=== PATIENT | female | born 1960 | race Caucasian/White ===

== ENCOUNTER 2018-11-09 01:59 | Emergency (ER) | payer OTHER ==
--- OUTSIDE RECORDS SUMMARY | 2018-11-09 02:02 | XMS REPORT ---
:1960 [facility] Address [address] [place] [address] Dr. Bland [address] [place] [id number] Care Team Providers Name Role Phone Unavailable Unavailable Unavailable Problems This patient has no known problems. Allergies, Adverse Reactions, Alerts This patient has no known allergies or adverse reactions. Medications This patient has no known medications.
--- NOTE | 2018-11-09 02:42 | ER ---
Nurse's Notes [facility] Name: Dede Mcmanus Age: 58 yrs Sex: Female : 1960 Arrival Date: 11/09/2018 Time: 02:01 Bed 5 Private MD: Andreia العلي F Diagnosis: Contusion of left foot Presentation: 11/09 02:11 Presenting complaint: Patient states: Reports she has been having pain on the top of ea her left foot, pt reports it woke her up from her sleep tonight. Pt reports she had a fall two weeks ago. Transition of care: patient was not received from another setting of care. Onset of symptoms was November 09, 2018. Risk Assessment: Do you want to hurt yourself or someone else? Patient reports no desire to harm self or others. Initial Sepsis Screen: Does the patient meet any 2 criteria? No. Patient's initial sepsis screen is negative. Does the patient have a suspected source of infection? No. Patient's initial sepsis screen is negative. Care prior to arrival: None. 02:11 Method Of Arrival: Wheelchair ea 02:11 Acuity: SHARIFA 3 ea Historical: - Allergies: 02:22 No Known Allergies; ea - Home Meds: 02:22 Abilify Oral [Active]; Lexapro Oral [Active]; Concerta Oral [Active]; Lantus Sub-Q ea [Active]; - PMHx: 02:22 Migraines; Diabetes - IDDM; Depression; ADD/ADHD; ea - PSHx: 02:22 Knee surgery; Appendectomy; Cholecystectomy; ea - Immunization history:: Adult Immunizations up to date. - Social history:: Smoking status: Patient/guardian denies using tobacco. - Ebola Screening: : No symptoms or risks identified at this time. Screenin:20 Abuse screen: Denies threats or abuse. Nutritional screening: No deficits noted. ea Tuberculosis screening: No symptoms or risk factors identified. Fall Risk None identified. Assessment: 02:16 General: Appears in no apparent distress. uncomfortable, Behavior is calm, cooperative, jd3 appropriate for age. Pain: Complains of pain in dorsum of left foot Quality of pain is described as aching, Aggravated by weight bearing. Neuro: Level of Consciousness is awake, alert, obeys commands, Oriented to person, place, time, situation, Appropriate for age. Cardiovascular: Capillary refill < 3 seconds Patient's skin is warm and dry. Respiratory: Airway is patent Respiratory effort is even, unlabored, Respiratory pattern is regular, symmetrical. GI: No signs and/or symptoms were reported involving the gastrointestinal system. : No signs and/or symptoms were reported regarding the genitourinary system. EENT: No signs and/or symptoms were reported regarding the EENT system. Derm: Skin is intact, Skin is dry, Skin is normal, Skin temperature is warm. Musculoskeletal: Circulation, motion, and sensation intact. Range of motion: intact in all extremities. 03:04 Reassessment: Patient appears in no apparent distress at this time. Patient and/or jd3 family updated on plan of care and expected duration. Pain level reassessed. Patient is alert, oriented x 3, equal unlabored respirations, skin warm/dry/pink. Vital Signs: 02:19 BP 129 / 74; Pulse 74; Resp 18; Temp 97.7; Pulse Ox 98% on R/A; Weight 94.35 kg; Height ea 5 ft. 7 in. (170.18 cm); 02:19 Body Mass Index 32.58 (94.35 kg, 170.18 cm) ea ED Course: 02:01 Patient arrived in ED. am2 02:01 Andreia العلي MD is Private Physician. am2 02:11 Timi Koroma, FAITH is Primary Nurse. jd3 02:16 [facility]. jr8 02:16 Michel Cordon MD is Attending Physician. jr8 02:18 Triage completed. ea 02:18 Patient has correct armband on for positive identification. Bed in low position. Call ea light in reach. 02:19 Arm band placed on right wrist. Patient placed in an exam room, on a stretcher, on ea pulse oximetry. 02:28 X-ray completed. Portable x-ray completed in exam room. Patient tolerated procedure kw well. 02:29 XRAY Foot LEFT 3 View In Process Unspecified. EDMS 02:41 Benny Waters MD is Referral Physician. jr8 02:55 ortho shoe placed on right foot, pt tolerated well. ea 02:59 No provider procedures requiring assistance completed. Patient did not have IV access ea during this emergency room visit. Administered Medications: 02:54 Drug: Achille (7.5 mg-325 mg) 1 tabs Route: PO; ea 03:04 Follow up: Response: Medication administered at discharge. jd3 Outcome: 02:42 Discharge ordered by . jr8 03:04 Discharged to home via wheelchair, with family. jd3 03:04 Condition: stable 03:04 Discharge instructions given to patient, family, Instructed on discharge instructions, follow up and referral plans. medication usage, Demonstrated understanding of instructions, follow-up care, medications, Prescriptions given X 1. 03:05 Patient left the ED. jd3 Signatures: Dispatcher [employer] EDMS Brandee Castillo Josh, PA PA jrMahi Doty Elena, RN Timi Villagran ea, RN RN jd3
--- NOTE | 2018-11-09 02:42 | EDPHYS ---
Physician Documentation [facility] Name: Dede Mcmanus Age: 58 yrs Sex: Female : 1960 Arrival Date: 11/09/2018 Time: 02:01 Bed 5 Private MD: Andreia العلي F ED Physician Michel Cordon HPI: 11/09 02:17 This 58 yrs old Female presents to ER via Unassigned with complaints of Foot jr8 Pain. 02:17 The patient presents with pain. The complaints affect the dorsum of left foot. Context: jr8 The problem was sustained at home, resulted from the patient tripping, the patient can fully bear weight, the patient is able to ambulate. Onset: The symptoms/episode began/occurred acutely, 2 week(s) ago. Modifying factors: The symptoms are alleviated by remaining still, the symptoms are aggravated by movement, weight bearing. Associated signs and symptoms: The patient has no apparent associated signs or symptoms. Severity of symptoms: At their worst the symptoms were mild, in the emergency department the symptoms are unchanged. The patient has not experienced similar symptoms in the past. The patient has not recently seen a physician. Stated that she came tonight because she had been woke up from sleeping by a sharp pain to foot. No prior imaging completed at time of incidence . Historical: - Allergies: 02:22 No Known Allergies; ea - Home Meds: 02:22 Abilify Oral [Active]; Lexapro Oral [Active]; Concerta Oral [Active]; Lantus Sub-Q ea [Active]; - PMHx: 02:22 Migraines; Diabetes - IDDM; Depression; ADD/ADHD; ea - PSHx: 02:22 Knee surgery; Appendectomy; Cholecystectomy; ea - Immunization history:: Adult Immunizations up to date. - Social history:: Smoking status: Patient/guardian denies using tobacco. - Ebola Screening: : No symptoms or risks identified at this time. ROS: 02:17 Eyes: Negative for injury, pain, redness, and discharge, ENT: Negative for injury, jr8 pain, and discharge, Neck: Negative for injury, pain, and swelling, Cardiovascular: Negative for chest pain, palpitations, and edema, Respiratory: Negative for shortness of breath, cough, wheezing, and pleuritic chest pain, Abdomen/GI: Negative for abdominal pain, nausea, vomiting, diarrhea, and constipation, Back: Negative for injury and pain, Skin: Negative for injury, rash, and discoloration, Neuro: Negative for headache, weakness, numbness, tingling, and seizure. 02:17 MS/extremity: Positive for pain, tenderness, of the dorsum of left foot. Exam: 02:17 Eyes: Pupils equal round and reactive to light, extra-ocular motions intact. Lids and jr8 lashes normal. Conjunctiva and sclera are non-icteric and not injected. Cornea within normal limits. Periorbital areas with no swelling, redness, or edema. ENT: Nares patent. No nasal discharge, no septal abnormalities noted. Tympanic membranes are normal and external auditory canals are clear. Oropharynx with no redness, swelling, or masses, exudates, or evidence of obstruction, uvula midline. Mucous membranes moist. Neck: Trachea midline, no thyromegaly or masses palpated, and no cervical lymphadenopathy. Supple, full range of motion without nuchal rigidity, or vertebral point tenderness. No Meningismus. Cardiovascular: Regular rate and rhythm with a normal S1 and S2. No gallops, murmurs, or rubs. Normal PMI, no JVD. No pulse deficits. Respiratory: Lungs have equal breath sounds bilaterally, clear to auscultation and percussion. No rales, rhonchi or wheezes noted. No increased work of breathing, no retractions or nasal flaring. Abdomen/GI: Soft, non-tender, with normal bowel sounds. No distension or tympany. No guarding or rebound. No evidence of tenderness throughout. Back: No spinal tenderness. No costovertebral tenderness. Full range of motion. Skin: Warm, dry with normal turgor. Normal color with no rashes, no lesions, and no evidence of cellulitis. Neuro: Awake and alert, GCS 15, oriented to person, place, time, and situation. Cranial nerves II-XII grossly intact. Motor strength 5/5 in all extremities. Sensory grossly intact. Cerebellar exam normal. Normal gait. 02:17 Musculoskeletal/extremity: Extremities: grossly normal except: noted in the dorsum of left foot: pain, tenderness, ROM: intact in all extremities, full active range of motion, full passive range of motion, limited active range of motion due to pain, limited passive range of motion due to pain, Circulation is intact in all extremities. Pulses: noted to be 2+ in the right radial artery, right posterior tibial artery, right dorsalis pedis artery, left radial artery, left posterior tibial artery and left dorsalis pedis artery, Sensation intact. Vital Signs: 02:19 BP 129 / 74; Pulse 74; Resp 18; Temp 97.7; Pulse Ox 98% on R/A; Weight 94.35 kg; Height ea 5 ft. 7 in. (170.18 cm); 02:19 Body Mass Index 32.58 (94.35 kg, 170.18 cm) ea Procedures: 02:41 Splinting: Splint applied to left foot using Ortho 3D boot, applied by nurse. Examined jr8 by me, post splint application: neurovascular intact, 2+ distal pulses palpable, brisk capillary refill noted, Patient tolerated well. MDM: 02:16 Patient medically screened. jr8 02:35 Data reviewed: vital signs, nurses notes, radiologic studies, plain films, and as a jr8 result, I will discharge patient. Data interpreted: Pulse oximetry: on room air is 98 %. Interpretation: normal. Counseling: I had a detailed discussion with the patient and/or guardian regarding: the historical points, exam findings, and any diagnostic results supporting the discharge/admit diagnosis, radiology results, the need for outpatient follow up, a orthopedic surgeon, to return to the emergency department if symptoms worsen or persist or if there are any questions or concerns that arise at home. 11/09 02:17 Order name: XRAY Foot LEFT 3 View jr8 11/09 02:55 Order name: Ortho shoe; Complete Time: 02:55 ea Administered Medications: 02:54 Drug: Eldridge (7.5 mg-325 mg) 1 tabs Route: PO; ea 03:04 Follow up: Response: Medication administered at discharge. jd3 Disposition: 04:25 Co-signature as Attending Physician, Michel Cordon MD I agree with the assessment and wa plan of care. Disposition: 11/09/18 02:42 Discharged to Home. Impression: Contusion of left foot. - Condition is Stable. - Discharge Instructions: Foot Contusion. - Prescriptions for Tylenol- Codeine #3 300-30 mg Oral Tablet - take 2 tablets by ORAL route every 6 hours As needed; 12 tablet. - Medication Reconciliation Form, Thank You Letter, Antibiotic Education, Prescription Opioid Use form. - Follow up: Benny Waters MD; When: 5 - 6 days; Reason: Recheck today's complaints, Continuance of care, Re-evaluation by your physician. - Problem is new. - Symptoms have improved. Signatures: Dispatcher [employer] EDMS Richard Ramey PA PA jr8 Yesi Villela RN RN ea Michel Cordon MD MD wa Davies, Jonathon, RN RN jd3 Corrections: (The following items were deleted from the chart) 03:05 02:42 11/09/2018 02:42 Discharged to Home. Impression: Contusion of left foot. jd3 Condition is Stable. Forms are Medication Reconciliation Form, Thank You Letter, Antibiotic Education, Prescription Opioid Use. Follow up: Dr. Benny Waters; When: 5 - 6 days; Reason: Recheck today's complaints, Continuance of care, Re-evaluation by your physician. Problem is new. Symptoms have improved. jr8
[2018-11-09] MEDS ORDERED: HYDROCODONE/APAP 7.5/325 MG TAB ONE (03:00)
--- NOTE | 2018-11-09 08:34 | RAD REPORT ---
EXAM DESCRIPTION: RAD - Foot Left 3 View - 11/09/2018 2:33 am CLINICAL HISTORY: PAIN Pain and swelling COMPARISON: No comparisons FINDINGS: No fracture or dislocation identified. Large plantar calcaneal spur.
[2018-11-09 15:43] VITALS: BP 129/74; TEMP 97.7; O2SAT 98
== END 2018-11-09 03:05 | disposition home or self-care (01) ==
LOC: ER 01:59
DX: S90.32XA Contusion of left foot, initial encounter (principal); W18.40XA Slipping, tripping and stumbling without falling, unspecified, initial encounter; Y92.009 Unspecified place in unspecified non-institutional (private) residence as the place of occurrence of the external cause; E11.9 Type 2 diabetes mellitus without complications; F32.9 Major depressive disorder, single episode, unspecified; F90.9 Attention-deficit hyperactivity disorder, unspecified type; Z79.4 Long term (current) use of insulin
CPT/HCPCS: 99284

== ENCOUNTER 2020-03-01 20:44 | Emergency (ER) | payer OTHER ==
--- OUTSIDE RECORDS SUMMARY | 2020-03-01 20:46 | XMS REPORT | Continuity of Care Document ---
:1960 Author Organization [facility] t Address [address] [place] [address] Dr. Bland [address] [place] [id number] Care Team Providers Name Role Phone Unavailable Unavailable Unavailable Problems This patient has no known problems. Allergies, Adverse Reactions, Alerts This patient has no known allergies or adverse reactions. Medications This patient has no known medications. Procedures This patient has no known procedures. Results This patient has no known results.
--- NOTE | 2020-03-01 23:26 | EDPHYS ---
Physician Documentation [facility] Name: Dede Mcmanus Age: 59 yrs Sex: Female : 1960 Arrival Date: 03/01/2020 Time: 20:46 Bed 19 Private MD: ED Physician Yury Peterson HPI: 03/02 22:37 This 59 yrs old Female presents to ER via Ambulatory with complaints of tw4 Sneezing, Cough, Headache, Decreased Appetite. 22:37 The patient or guardian reports congestion. The patient or guardian reports cough. tw4 Onset: The symptoms/episode began/occurred today. Severity of symptoms: At their worst the symptoms were moderate. Modifying factors: The symptoms are alleviated by nothing, the symptoms are aggravated by nothing. Associated signs and symptoms: The patient has no apparent associated signs or symptoms. The patient has not experienced similar symptoms in the past. Historical: - Allergies: 03/01 21:09 No Known Allergies; lp1 - Home Meds: 21:09 Abilify Oral [Active]; Concerta Oral [Active]; Lantus Sub-Q [Active]; Lexapro Oral lp1 [Active]; Metformin Oral [Active]; - PMHx: 21:09 ADD/ADHD; Depression; Diabetes - IDDM; Migraines; lp1 - PSHx: 21:09 Cholecystectomy; Appendectomy; Knee surgery; lp1 - Immunization history:: Adult Immunizations up to date. - Social history:: Smoking status: Patient denies any tobacco usage or history of. ROS: 03/02 22:37 Constitutional: Negative for fever, chills, and weight loss, Eyes: Negative for injury, tw4 pain, redness, and discharge, Cardiovascular: Negative for chest pain, palpitations, and edema, Abdomen/GI: Negative for abdominal pain, nausea, vomiting, diarrhea, and constipation, Back: Negative for injury and pain, MS/Extremity: Negative for injury and deformity, Skin: Negative for injury, rash, and discoloration, Neuro: Negative for headache, weakness, numbness, tingling, and seizure. Respiratory: Positive for cough, Negative for dyspnea on exertion, hemoptysis, orthopnea, pleurisy, shortness of breath, sputum production. Exam: 22:37 Constitutional: This is a well developed, well nourished patient who is awake, alert, tw4 and in no acute distress. Head/Face: Normocephalic, atraumatic. Chest/axilla: Normal chest wall appearance and motion. Nontender with no deformity. No lesions are appreciated. Cardiovascular: Regular rate and rhythm with a normal S1 and S2. No gallops, murmurs, or rubs. Normal PMI, no JVD. No pulse deficits. Respiratory: Lungs have equal breath sounds bilaterally, clear to auscultation and percussion. No rales, rhonchi or wheezes noted. No increased work of breathing, no retractions or nasal flaring. Abdomen/GI: Soft, non-tender, with normal bowel sounds. No distension or tympany. No guarding or rebound. No evidence of tenderness throughout. Back: No spinal tenderness. No costovertebral tenderness. Full range of motion. Skin: Warm, dry with normal turgor. Normal color with no rashes, no lesions, and no evidence of cellulitis. MS/ Extremity: Pulses equal, no cyanosis. Neurovascular intact. Full, normal range of motion. Neuro: Awake and alert, GCS 15, oriented to person, place, time, and situation. Cranial nerves II-XII grossly intact. Motor strength 5/5 in all extremities. Sensory grossly intact. Cerebellar exam normal. Normal gait. Vital Signs: 03/01 21:10 BP 125 / 77; Pulse 60; Resp 18; Temp 98.7(O); Pulse Ox 96% on R/A; Weight 97.07 kg (R); lp1 Height 5 ft. 6 in. (167.64 cm); Pain 0/10; 22:32 BP 136 / 79; Pulse 60; Resp 18; Pulse Ox 96% on R/A; lp1 21:10 Body Mass Index 34.54 (97.07 kg, 167.64 cm) lp1 MDM: 21:23 Patient medically screened. tw4 03/02 22:37 Differential Diagnosis: Obstructed Airway Bronchitis Influenza. Data reviewed: vital tw4 signs, nurses notes. Data interpreted: Pulse oximetry: Interpretation: normal. Counseling: I had a detailed discussion with the patient and/or guardian regarding: the historical points, exam findings, and any diagnostic results supporting the discharge/admit diagnosis. Special discussion: I discussed with the patient/guardian in detail that at this point there is no indication for admission to the hospital. It is understood, however, that if the symptoms persist or worsen the patient needs to return immediately for re-evaluation. 03/01 21:23 Order name: COVID-19 tw 03/01 21:23 Order name: Flu tw 03/01 21:23 Order name: Strep tw 03/01 21:23 Order name: Document PUI#; Complete Time: 21:25 tw4 03/01 21:23 Order name: Droplet/Contact Precautions; Complete Time: 21:25 tw4 03/01 23:13 Order name: Throat Culture [facility] 03/01 21:23 Order name: Labs collected and sent; Complete Time: 21:40 tw4 03/01 21:23 [phone] ; Complete Time: 21:25 tw4 03/01 21:23 Order name: O2 Per Protocol; Complete Time: 21:25 tw4 Administered Medications: No medications were administered Disposition: 03/01/20 23:26 Discharged to Home. Impression: Acute upper respiratory infection, unspecified. - Condition is Stable. - Discharge Instructions: COVID-19, Upper Respiratory Infection, Adult, Cool Mist Vaporizer. - Prescriptions for Tessalon Perles 100 mg Oral Capsule - take 1 capsule by ORAL route every 8 hours As needed; 15 capsule. Guaifenesin AC 10- 100 mg/5 mL Oral Liquid - take 10 milliliter by ORAL route every 4 hours As needed; 240 milliliter. - Work release form, Medication Reconciliation Form, Thank You Letter, Antibiotic Education, Prescription Opioid Use form. - Follow up: Private Physician; When: Upon discharge from the Emergency Department; Reason: Recheck today's complaints, Continuance of care, Re-evaluation by your physician. - Problem is new. - Symptoms are unchanged. Signatures: Dispatcher [employer] EDSarina Doty RN RN lp1 Yury Peterson MD MD tw4 Corrections: (The following items were deleted from the chart) 03/01 23:38 23:26 03/01/2020 23:26 Discharged to Home. Impression: Acute upper respiratory lp1 infection, unspecified. Condition is Stable. Forms are Medication Reconciliation Form, Thank You Letter, Antibiotic Education, Prescription Opioid Use. Follow up: Private Physician; When: Upon discharge from the Emergency Department; Reason: Recheck today's complaints, Continuance of care, Re-evaluation by your physician. Problem is new. Symptoms are unchanged. tw4
--- NOTE | 2020-03-01 23:26 | ER ---
Nurse's Notes [facility] Name: Dede Mcmanus Age: 59 yrs Sex: Female : 1960 Arrival Date: 03/01/2020 Time: 20:46 Bed 19 Private MD: Diagnosis: Acute upper respiratory infection, unspecified Presentation: 03/01 21:05 Chief complaint: Patient states: "I have been having symptoms of Coronavirus"; States lp1 Lack of appetite, fatigue, cough, sneezing that began 2 days ago; Denies fever. Coronavirus screen: Client denies travel out of the [place] in the last 14 days. congestion, cough unrelated to allergies, fatigue, headache, muscle pain, runny nose, Client presents with at least one sign or symptom that may indicate coronavirus-19. Standard/surgical mask placed on the client. Provider contacted for isolation considerations. The client reports previous COVID testing was negative. In September prior to surgery. Ebola Screen: No symptoms or risks identified at this time. 21:05 Method Of Arrival: Ambulatory lp1 21:09 Risk Assessment: Do you want to hurt yourself or someone else? Patient reports no lp1 desire to harm self or others. Onset of symptoms was March 01, 2020. 21:09 Acuity: SHARIFA 3 lp1 21:10 Initial Sepsis Screen: Does the patient meet any 2 criteria? No. Patient's initial lp1 sepsis screen is negative. Does the patient have a suspected source of infection? No. Patient's initial sepsis screen is negative. Historical: - Allergies: 21:09 No Known Allergies; lp1 - Home Meds: 21:09 Abilify Oral [Active]; Concerta Oral [Active]; Lantus Sub-Q [Active]; Lexapro Oral lp1 [Active]; Metformin Oral [Active]; - PMHx: 21:09 ADD/ADHD; Depression; Diabetes - IDDM; Migraines; lp1 - PSHx: 21:09 Cholecystectomy; Appendectomy; Knee surgery; lp1 - Immunization history:: Adult Immunizations up to date. - Social history:: Smoking status: Patient denies any tobacco usage or history of. Screenin:09 Abuse screen: Denies threats or abuse. Denies injuries from another. Nutritional lp1 screening: No deficits noted. Tuberculosis screening: No symptoms or risk factors identified. Fall Risk None identified. Assessment: 21:17 General: Appears in no apparent distress. comfortable, Behavior is calm, cooperative, ca1 appropriate for age. General: Reports fatigue for 2-3 days. Pain: Denies pain. Neuro: Level of Consciousness is awake, alert, obeys commands, Oriented to person, place, time, situation. Neuro: Reports headache. Cardiovascular: Heart tones S1 S2 present Capillary refill < 3 seconds Patient's skin is warm and dry. Respiratory: Reports cough that is since 3 days ago Airway is patent Respiratory effort is even, unlabored, Breath sounds are clear bilaterally. GI: Abdomen is round non-distended, Bowel sounds present X 4 quads. Abd is soft and non tender X 4 quads. : No signs and/or symptoms were reported regarding the genitourinary system. EENT: Reports sneezing. Derm: Skin is intact, is healthy with good turgor, Skin is pink, warm \\T\\ dry. Musculoskeletal: Circulation, motion, and sensation intact. Capillary refill < 3 seconds. 22:31 Reassessment: Patient appears in no apparent distress at this time. Patient is alert, lp1 oriented x 3, equal unlabored respirations, skin warm/dry/pink. Patient aware of pending flu and strep results. Vital Signs: 21:10 BP 125 / 77; Pulse 60; Resp 18; Temp 98.7(O); Pulse Ox 96% on R/A; Weight 97.07 kg (R); lp1 Height 5 ft. 6 in. (167.64 cm); Pain 0/10; 22:32 BP 136 / 79; Pulse 60; Resp 18; Pulse Ox 96% on R/A; lp1 21:10 Body Mass Index 34.54 (97.07 kg, 167.64 cm) lp1 ED Course: 20:46 Patient arrived in ED. bp1 21:09 Triage completed. lp1 21:09 Arm band placed on right wrist. lp1 21:15 Sandra Aguirre, FAITH is Primary Nurse. ca1 21:17 Patient has correct armband on for positive identification. Placed in gown. Bed in low ca1 position. Call light in reach. Side rails up X 1. Pulse ox on. NIBP on. Warm blanket given. 21:22 Yury Peterson MD is Attending Physician. tw4 22:00 Report received from FAITH Flores. lp1 23:31 No provider procedures requiring assistance completed. Patient did not have IV access lp1 during this emergency room visit. Administered Medications: No medications were administered Outcome: 23:26 Discharge ordered by . tw4 23:31 Discharged to home ambulatory. lp1 23:31 Condition: good 23:31 Discharge instructions given to patient, Instructed on discharge instructions, follow up and referral plans. medication usage, Demonstrated understanding of instructions, follow-up care, medications, Prescriptions given X 2. 23:38 Patient left the ED. lp1 Signatures: Sarina Joaquin, RN RN lp1 Yury Peterson MD MD tw4 Sandra Aguirre, RN RN ca1 Radha Gutiérrez [facility]
[2020-03-03 05:46] VITALS: TEMP 98.7; O2SAT 96
[2020-03-03 05:47] VITALS: BP 136/79
== END 2020-03-01 23:38 | disposition home or self-care (01) ==
LOC: ER 20:44
DX: J06.9 Acute upper respiratory infection, unspecified (principal); Z20.828 Contact with and (suspected) exposure to other viral communicable diseases; E11.9 Type 2 diabetes mellitus without complications; F32.9 Major depressive disorder, single episode, unspecified; F90.9 Attention-deficit hyperactivity disorder, unspecified type; Z79.4 Long term (current) use of insulin
CPT/HCPCS: 87070; 87081; 87804 ×2; 99283; U0002

== ENCOUNTER 2020-07-06 20:59 | Emergency (ER) | payer OTHER ==
--- OUTSIDE RECORDS SUMMARY | 2020-07-06 21:02 | XMS REPORT | Continuity of Care Document ---
:1960 Author Organization [facility] t Address [address] [place] [address] [address]. [address] [place] [address] Care Team Providers Name Role Phone Unavailable Unavailable Unavailable Problems Condition Condition Condition Status Onset Resolution Last Treating Co mments Source Name Details Category Date Date Treatment Clinician Date Hypoglycem Hypoglycem Problem Active [facility] 02-27 Family 00:00: Practic 00 e Chronic Chronic Problem Active [facility] kidney Kidney 12-08 Family disease Disease 00:00: Practic 00 e Type 2 Type 2 Problem Active [facility] diabetes Diabetes 11-18 Family mellitus Mellitus 00:00: Practi c 00 e Obesity Obesity Problem Active [facility] 11-18 Family 00:00: Practic 00 e Anxiety Anxiety Problem Active [place] disorder Disorder 24 Family 00:00: Practic 00 e Depressive Depressive Problem Active [facility] disorder Disorder -24 Family 00:00: Practic 00 e Migraine Migraine Problem Active [place] 24 Family 00:00: Practic 00 e Essential Essential Problem Active [facility] hypertensi Hypertensi - Fa binta on on 00:00: Practic 00 e Gastro-eso Gastro-eso Problem Active [facility] phageal phageal 11-18 Family reflux Reflux 00:00: Practic disease Disease 00 e with with esophagiti Esophagiti s s Constipati Constipati Problem Active [facility] on on 11-18 Family 00:00: Practic 00 e Allergies, Adverse Reactions, Alerts This patient has no known allergies or adverse reactions. Social History Smoking Status Start Date Stop Date Source Never Smoker [facility] Family P ramez Medications Ordered Filled Start Stop Current Ordering Indication Dosage Frequency Signature Comments Components Source Medication Medication Date Date Medication? Clinician (SIG) Name Name aripiprazol aripiprazol No 1 Q1D aripiprazo [place] e 2 mg e 2 mg le 2 mg Family tablet Take tablet Take tablet Practic 1 tablet 1 tablet Take 1 e every day every day tablet by oral by oral every day route. route. by oral route. Cinnamon Cinnamon No Cinnamon [facility] fiber fiber No fiber [facility] FreeStyle FreeStyle No FreeStyle [facility] Elis 14 Elis 14 Elis 14 Fam fay Day Sensor Day Sensor Day Sensor Practic e Januvia 100 Januvia 100 No 1 Q1D Januvia [facility] mg tablet mg tablet 100 mg Fam fay Take 1 Take 1 tablet Practic tablet tablet Take 1 e every day every day tablet by oral by oral every day route. route. by oral route. Jardiance Jardiance No 1 Q1D Jardiance Chad 10 mg 10 mg 10 mg Family tablet Take tablet Take tablet Practic 1 tablet 1 tablet Take 1 e every day every day tablet by oral by oral every day route for route for by oral 90 days. 90 days. route for 90 days. Lantus Lantus No 14unit( Q1D Lantus [place] Solostar Solostar s) Solostar Fam fay U-100 U-100 U-100 Practic Insulin 100 Insulin 100 Insulin e unit/mL (3 unit/mL (3 100 mL) mL) unit/mL (3 subcutaneou subcutaneou mL) s pen s pen subcutaneo Inject 14 Inject 14 us pen units every units every Inject 14 day by day by units subcutaneou subcutaneou every day s route as s route as by directed. directed. subcutaneo us route as directed. Lexapro 20 Lexapro 20 No 1 Q1D Lexapro 20 [facility] mg tablet mg tablet mg tablet Family Take 1 Take 1 Take 1 Practic tablet tablet tablet e every day every day every day by oral by oral by oral route. route. route. metformin metformin No 2 BID metformin [place] ER 500 mg ER 500 mg ER 500 mg Family 24 hr 24 hr 24 hr Practic tablet,exte tablet,exte tablet,ext e nded nded ended release release release Take 2 Take 2 Take 2 tablets tablets tablets twice a day twice a day twice a by oral by oral day by route as route as oral route directed. directed. as directed. methylpheni methylpheni No 1 Q1D methylphen [place] date ER 36 date ER 36 idate ER Family mg mg 36 mg Practic tablet,exte tablet,exte tablet,ext e nded nded ended release 24 release 24 release 24 hr Take 1 hr Take 1 hr Take 1 tablet tablet tablet every day every day every day by oral by oral by oral route. route. route. [place] 3 3 [place] 3 3 No [place] 3 3 [facility] times daily times daily times Family daily Practic e omeprazole omeprazole No 1capsul Q1D omeprazole [facility] 40 mg 40 mg e(s) 40 mg Family capsule,del capsule,del capsule,de Practic ayed ayed layed e release release release Take 1 Take 1 Take 1 capsule capsule capsule every day every day every day by oral by oral by oral route. route. route. Pen [place] Pen [place] No 1needle Q1D Pen [facility] 31 X 5/16" 31 X 5/16" (s) [place] 31 Family Take 1 Take 1 X 5/16" Practic needle needle Take 1 e every day every day needle by miscell. by miscell. every day route as route as by directed. directed. miscell. route as directed. Immunizations Ordered Immunization Filled Immunization Date Status Commen ts Source Name Name tetanus toxoid, tetanus toxoid, 2014-06-28 Completed [facility] adsorbed adsorbed 00:00:00 Practice Vital Signs Vital Name Observation Time Observation Value Comments Source BP Diastolic 2020-06-06 00:00:00 82 mm[Hg] [facility] Height 2020-06-06 00:00:00 66.5 [in_i] [facility] BMI (Body Mass 2020-06-06 00:00:00 33.6 kg/m2 [facility] Index) Practice BP Systolic 2020-06-06 00:00:00 136 mm[Hg] [facility] Body Weight 2020-06-06 00:00:00 211.4 [lb_av] [facility] Procedures Procedure Date / Time Performing Clinician Source Performed Bilateral Extraction of 2016-11-26 00:00:00 [facility] Cataracts Practice Knee Arthroscopy/surgery 2003-06-28 00:00:00 Dustin morales [facility] Laparoscopic 1998-06-28 00:00:00 [facility] Cholecystectomy Practice Appendectomy 1974-06-28 00:00:00 [facility] Kirk stephen Practice Plan of Care Planned Activity Planned Date Details Comments Source Diagnostic Test 2020-06-06 glucose, fingerstick, Dustin morales [facility] Pending 00:00:00 blood [code = Practice glucose, fingerstick, blood] Diagnostic Test 2020-06-06 hemoglobin A1C, [place] F amily Pending 00:00:00 fingerstick [code = Practice hemoglobin A1C, fingerstick] Future Appointment 2020-09-05 Bala Cordova, [id number] [facility] Family 10:15:[address]; Practice [address], [place] [address] Encounters Start End Encounter Admission Attending Care Care Encounter Source Date/Time Date/Time Type Type Clinicians Facility Department ID 2020-06-06 2020-06-06 Bala P [place] - [id number] [facility] 00:00:00 00:00:00 [facility], [facility] - Practi rocco BURNS: [id number] THOMAS_ARIELLE_Alexander [facility], [facility] [address], [place] [address] , Ph. Results This patient has no known results.
--- OUTSIDE RECORDS SUMMARY | 2020-07-06 21:02 | XMS REPORT | Encounter Summary ---
:1960 Author Care Team Providers Name Role Phone Dr. Andreia العلي Primary Care Provider [phone] Reason for Visit diabetes Instructions 1. Type 2 diabetes mellitus glucose, fingerstick, bloo d hemoglobin A1C, fingerstic k Jardiance 10 mg tablet 2. Chronic kidney disease 3. Essential hypertension 4. Hypoglycemia hypoglycemia: care instruc tions 5. Anxiety disorder 6. Body mass index 30+ - obesity body mass index: care inst ructions learning about healthy jayden ght Discussion Note: None recorded. Plan of Care Reminders Provider Appointments Diabetic Timoth y Dilon 09/05/2020 MD Denny 10:15AM Lab Glucose, Vm_hou_d osmar Fingerstick, Blood 06/06/2020 Hemoglobin a1C, V m_dimitrisu_denny Fingerstick 06/06/2020 Referral None recorded. Procedures None recorded. Surgeries None recorded. Imaging None recorded. Medications Name Start Date aripiprazole 2 mg tablet Take 1 tablet every day by oral route. Cinnamon fiber FreeStyle [place] 14 Day Sensor Januvia 100 mg tablet Take 1 tablet every day by oral route. Jardiance 10 mg tablet Take 1 tablet every day by oral route for 90 days. Lantus Solostar U-100 Insulin 100 unit/mL (3 mL) subcu taneous pen Inject 14 units every day by subcutaneous route as di rected. Lexapro 20 mg tablet Take 1 tablet every day by oral route. metformin ER 500 mg 24 hr tablet,extended release Take 2 tablets twice a day by oral route as directed. methylphenidate ER 36 mg tablet,extended release 24 hr Take 1 tablet every day by oral route. [place] 3 3 times daily omeprazole 40 mg capsule,delayed release Take 1 capsule every day by oral route. Pen [place] 31 X 5/16" Take 1 needle every day by miscell. route as directed . Medications Administered None recorded. Vitals Height Weight BMI Blood Pressure 5 ft 6.5 in 211.4 lbs 33.6 kg/m2 136/82 mm[Hg] Results Lab Results Date Name Specimen Result Interpretation Description Value Range Status Address Hemoglobin a1C, Hemoglobin a1C 7.0 [place]: Fingerstick Fingerstick: [address], [place] Glucose, Blood Glucose: 166 [place]: Fingerstick, mg/dl 1097 0 [facility] Blood [address], [place] Allergies Code Code System Name Reaction Severity Status Onset NKDA Problems Name Status Onset Date Source Type 2 Diabetes Mellitus Active 11/18/2017 Obesity Active 11/18/2017 Anxiety Disorder Active 11/18/2017 Depressive Disorder Active 11/18/2017 Migraine Active 11/18/2017 Essential Hypertension Active 11/18/2017 Gastro-esophageal Reflux Disease with Active 11/18/2017 Esophagitis Constipation Active 11/18/2017 Chronic Kidney Disease Active 12/09/2019 Hypoglycemia Active 02/28/2020 Procedures Date Name Performed by 11/26/2016 Bilateral Extraction of Cataracts Inform ation not available 06/28/2003 Knee Arthroscopy/surgery Information not available 06/28/1998 Laparoscopic Cholecystectomy Information not available 06/28/1974 Appendectomy Information not avai lable Vaccine List Vaccine Type tetanus toxoid, adsorbed 06/28/2014 Social History Tobacco Smoking Status Never Smoker Past Encounters Encounter Date Diagnosis Provider 06/06/2020 Type 2 Diabetes Mellitus; Bala Cordova MD: Chronic Kidney Disease; [id number], Essential Hypertension; [address], [place] Hypoglycemia; Anxiety [id number], Ph. (7 13) Disorder; Body Mass Index 30+ [phone] - Obesity History of Present Illness Diabetes F/U Reported By: Patient HPI: Labs: last A1C result: 7.0%. Context: seeing eye doctor regularly. Associated Symptoms: no weig ht gain, no dizziness, no increased thirst, no increased urination, no b lurred vision, no numbness of feet, weight loss (3 lbs) Note: The patient is here for follow up DM2. Review of Systems Comprehensive General Adult ROS Reported By: Patient Constitutional: Constitutional: no fever, no night sweats, lethargy Eyes: Eyes: no dry eyes, no vision change ENMT: Ears: no difficulty hearing, no ear pain. Mouth/Throat: no sore throat Cardiovascular: Cardiovascular: no chest chip n, no shortness of breath when walking, no palpitations Respiratory: Respiratory: no wheezing, no shortness of breath, cough Gastrointestinal: Gastrointestinal: no abdomin al pain, no nausea, no vomiting, no constipation, no diarrhea Musculoskeletal: Musculoskeletal: no muscle a ches, no muscle weakness, no arthralgias/joint pain, no b ack pain, no swelling in the extremities Integumentary: Skin: no rashes Neurologic: Neurologic: no weakness, no dizziness, no headaches Psychiatric: Psych: no depression, no sle ep disturbances, no anxiety Endocrine: Endocrine: no fatigue Allergic/Immunologic: Allergy/Immunologic: no itch ing Physical Exam General Adult Exam (Female) Reported By: Patient Constitutional: General Appearance: well-dev eloped, obese. Level of Distress: NAD. Ambulation: ambulating mini lly Psychiatric: Mental Status: active and al ert Head: Head: normocephalic, atrauma tic Eyes: Pupils: PERRLA. Sclerae: non -icteric Lungs: Auscultation: breath sounds normal, good air movement, no wheezing, no rales/crackles Cardiovascular: Heart Auscultation: RRR, nor mal S1, normal S2, murmur; 1/6 Murmur Abdomen: Bowel Sounds: normal. Inspec tion and Palpation: soft, RUQ tenderness Musculoskeletal:: Motor Strength and Tone: nor mal motor strength. Extremities: no cyanosis, no edema Neurologic: Gait and Station: normal gai t Skin: Inspection and palpation: no rash, no lesions
[2020-07-06] MEDS ORDERED: NA CHLORIDE 0.9% 1,000 ML ONE (22:19)
[2020-07-06 23:06] LABS: Absolute Lymphocytes (CBC) 1.6 K/uL (0.7-4.9); Basophils % 0.9 % (0-1.3); Lymphocytes % 26.9 % (15.3-44.8); MPV 10.4 fL (7.6-11.3); RBC Red Blood Cell Count 5.14 M/uL (3.86-4.86)
[2020-07-06 23:07] LABS: Protime INR 0.98
[2020-07-06 23:19] LABS: ALT/SGPT 72 U/L (12-78); AST/SGOT 64 U/L (15-37); Albumin 3.8 g/dL (3.4-5.0); Alkaline Phosphatase 75 U/L (45-117); BUN Blood Urea Nitrogen 23 mg/dL (7-18); Bicarbonate 26 mmol/L (21-32); Bilirubin Direct < 0.1 mg/dL (0-0.2); Bilirubin Total 0.4 mg/dL (0.2-1.0); Glucose Level 125 mg/dL (74-106); Magnesium 1.8 mg/dL (1.8-2.4); NT PRO-BNP 113 pg/mL (<125); Potassium 4.3 mmol/L (3.5-5.1); Protein, Total 7.9 g/dL (6.4-8.2); Sodium Level 135 mmol/L (136-145); Troponin (Emerg Dept Use Only) < 0.02 ng/mL (0.0-0.045)
[2020-07-06 23:54] LABS: Urine Blood NEGATIVE (NEG); Urine Glucose 2+ (NEG); Urine Protein NEGATIVE (NEG)
[2020-07-07 00:26] LABS: SARS-COV-2 RT PCR NEGATIVE (NEGATIVE)
[2020-07-07 00:56] LABS: Urine Bacteria >50 /HPF (<20); Urine RBC <5 /HPF (NONE SEEN)
--- NOTE | 2020-07-07 02:21 | ER ---
Nurse's Notes [facility] Name: Dede Mcmanus Age: 60 yrs Sex: Female : 1960 Arrival Date: 07/06/2020 Time: 21:01 Bed 14 Private MD: Andreia العلي F Diagnosis: Headache;Nausea;Generalized Fatigue-Chronic Presentation: 07/06 21:16 Chief complaint: Patient states: Headache, nausea, fatigue since yesterday. Denies ca1 fever and diarrhea. Coronavirus screen: Client denies travel out of the [place] in the last 14 days. fatigue, headache, nausea, Client presents with at least one sign or symptom that may indicate coronavirus-19. Standard/surgical mask placed on the client. Provider contacted for isolation considerations. Ebola Screen: Patient negative for fever greater than or equal to 101.5 degrees Fahrenheit, and additional compatible Ebola Virus Disease symptoms Patient denies exposure to infectious person. Patient denies travel to an Ebola-affected area in the 21 days before illness onset. No symptoms or risks identified at this time. Initial Sepsis Screen: Does the patient meet any 2 criteria? No. Patient's initial sepsis screen is negative. Does the patient have a suspected source of infection? No. Patient's initial sepsis screen is negative. Risk Assessment: Do you want to hurt yourself or someone else? Patient reports no desire to harm self or others. Onset of symptoms was July 06, 2020. 21:16 Method Of Arrival: Ambulatory ca1 21:16 Acuity: SHARIFA 3 ca1 Historical: - Allergies: 21:19 No Known Allergies; ca1 - Home Meds: 21:19 Abilify Oral [Active]; Concerta Oral [Active]; Lantus Sub-Q [Active]; Lexapro Oral ca1 [Active]; Metformin Oral [Active]; - PMHx: 21:19 ADD/ADHD; Depression; Diabetes - IDDM; Migraines; ca1 - PSHx: 21:19 Cholecystectomy; Appendectomy; Knee surgery; ca1 - Immunization history:: Flu vaccine is not up to date. - Social history:: Smoking status: Patient denies any tobacco usage or history of. Screenin:45 Abuse screen: Denies threats or abuse. Nutritional screening: No deficits noted. ll2 Tuberculosis screening: No symptoms or risk factors identified. Fall Risk None identified. Assessment: 21:45 General: Appears in no apparent distress. Behavior is calm, cooperative, appropriate ll2 for age. Pain: Complains of pain in left lower quadrant and right lower quadrant. Neuro: Level of Consciousness is awake, alert, obeys commands, Oriented to person, place, time, situation. Cardiovascular: Patient's skin is warm and dry. Respiratory: Airway is patent Respiratory effort is even, unlabored, Respiratory pattern is regular, symmetrical. GI: No signs and/or symptoms were reported involving the gastrointestinal system. : No signs and/or symptoms were reported regarding the genitourinary system. EENT: No signs and/or symptoms were reported regarding the EENT system. Derm: Skin is pink, warm \T\ dry. Musculoskeletal: Circulation, motion, and sensation intact. Range of motion: intact in all extremities. Vital Signs: 21:16 BP 116 / 77; Pulse 57; Resp 16 S; Temp 97.9(TE); Pulse Ox 95% on R/A; Weight 96.16 kg ca1 (R); Height 5 ft. 6 in. (167.64 cm) (R); Pain 4/10; 21:16 Body Mass Index 34.22 (96.16 kg, 167.64 cm) ca1 Yvonne Coma Score: 07/07 02:18 Eye Response: spontaneous(4). Verbal Response: oriented(5). Motor Response: obeys mh7 commands(6). Total: 15. ED Course: 07/06 21:01 Patient arrived in ED. am2 21:01 Andreia العلي MD is Private Physician. am2 21:18 Triage completed. ca1 21:19 Arm band placed on right wrist. ca1 21:39 Kendall Reyes PA is PHCP. jmm 21:39 Otoniel Nevarez MD is Attending Physician. m 21:45 Patient has correct armband on for positive identification. cad programmer on. Pulse ll2 ox on. NIBP on. 21:45 No provider procedures requiring assistance completed. ll2 22:15 Viviana Hackett, FAITH is Primary Nurse. ll2 22:15 XRAY Chest (1 view) In Process Unspecified. EDMS 23:50 Basic Metabolic Panel Sent. ll2 23:50 CBC with Diff Sent. ll2 07/07 00:17 CT Chest Abdomen Pelvis W/O Contrast In Process Unspecified. EDMS 01:28 CT Head Brain wo Cont In Process Unspecified. EDMS Administered Medications: 07/06 22:50 Drug: NS 0.9% 1000 ml Route: IV; Rate: 1 bolus; Site: right antecubital; ll2 07/07 00:58 Drug: NS 0.9% 1000 ml Route: IV; Rate: 1 bolus; Site: right antecubital; 2 Outcome: 02:21 Discharge ordered by MD. george 02:30 Patient left the ED. 2 Signatures: Dispatcher [employer] EDMS Kendall Reyes PA PA jmm Moreno, Amanda am2 Sandra Aguirre RN RN ca1 Viviana Hackett RN RN 2 Otoniel Nevarez MD MD 7
--- NOTE | 2020-07-07 02:21 | EDPHYS ---
Physician Documentation [facility] Name: Dede Mcmanus Age: 60 yrs Sex: Female : 1960 Arrival Date: 07/06/2020 Time: 21:01 Bed 14 Private MD: Andreia العلي F ED Physician Otoniel Nevarez HPI: 07/06 21:58 This 60 yrs old Female presents to ER via Ambulatory with complaints of jmm General Weakness, Headache, Decreased Appetite. 21:58 The patient presents with abdominal pain. Onset: The symptoms/episode began/occurred jmm gradually, 1 day(s) ago. The symptoms do not radiate. Associated signs and symptoms: Pertinent positives: nausea. This is a 60 year old female with a history of DM that presents to the ED with complaints of low back pain, fatigue, abdominal pain, headache beginning approx 1 day ago. Patient states she did perform strenous activity yesterday as well. Denies vomiting, cough, shortness of breath or chest pain. Historical: - Allergies: 21:19 No Known Allergies; ca1 - Home Meds: 21:19 Abilify Oral [Active]; Concerta Oral [Active]; Lantus Sub-Q [Active]; Lexapro Oral ca1 [Active]; Metformin Oral [Active]; - PMHx: 21:19 ADD/ADHD; Depression; Diabetes - IDDM; Migraines; ca1 - PSHx: 21:19 Cholecystectomy; Appendectomy; Knee surgery; ca1 - Immunization history:: Flu vaccine is not up to date. - Social history:: Smoking status: Patient denies any tobacco usage or history of. ROS: 21:58 Cardiovascular: Negative for chest pain, palpitations, and edema. jmm 21:58 Constitutional: Positive for body aches, chills, fatigue. 21:58 Abdomen/GI: Positive for abdominal pain, nausea. 21:58 Back: Positive for pain with movement. 21:58 All other systems are negative. Exam: 21:58 Constitutional: This is a well developed, well nourished patient who is awake, alert, jmm and in no acute distress. Head/Face: atraumatic. Eyes: EOMI, no conjunctival erythema appreciated ENT: Moist Mucus Membranes Neck: Trachea midline, Supple Chest/axilla: Normal chest wall appearance and motion. Cardiovascular: Regular rate and rhythm. No edema appreciated Respiratory: Normal respirations, no respiratory distress appreciated 21:58 Abdomen/GI: Inspection: abdomen appears normal, Bowel sounds: normal, Palpation: soft, mild abdominal tenderness, in the right lower quadrant and left lower quadrant. 21:58 Back: pain, is absent, ROM is normal. 21:58 Musculoskeletal/extremity: ROM: intact in all extremities. 21:58 Neuro: Orientation: is normal, Mentation: is normal, Memory: is normal. 21:58 Psych: Behavior/mood is pleasant, cooperative. Vital Signs: 21:16 BP 116 / 77; Pulse 57; Resp 16 S; Temp 97.9(TE); Pulse Ox 95% on R/A; Weight 96.16 kg ca1 (R); Height 5 ft. 6 in. (167.64 cm) (R); Pain 4/10; 21:16 Body Mass Index 34.22 (96.16 kg, 167.64 cm) ca1 [place] Coma Score: 07/07 02:18 Eye Response: spontaneous(4). Verbal Response: oriented(5). Motor Response: obeys mh7 commands(6). Total: 15. MDM: 07/06 21:55 Patient medically screened. [facility] 07/07 00:40 Data reviewed:. Transition of care: After a detail discussion of the patient's case, [facility] care is transferred to Otoniel Nevarez MD. 02:18 Differential diagnosis: cluster headache, hypoglycemia, migraine, tension headache. mh7 Data interpreted: Pulse oximetry: on room air is 95 %. Interpretation: normal. Counseling: I had a detailed discussion with the patient and/or guardian regarding: the historical points, exam findings, and any diagnostic results supporting the discharge/admit diagnosis, lab results, radiology results, the need for outpatient follow up, to return to the emergency department if symptoms worsen or persist or if there are any questions or concerns that arise at home. Response to treatment: the patient's symptoms have markedly improved after treatment. 07/06 21:57 Order name: Basic Metabolic Panel [facility] 07/06 21:57 Order name: CBC with Diff [facility] 07/06 21:57 Order name: LFT's; Complete Time: 23:21 [facility] 07/06 21:57 Order name: Magnesium; Complete Time: 23:21 [facility] 07/06 21:57 Order name: NT PRO-BNP; Complete Time: 23:21 [facility] 07/06 21:57 Order name: PT-INR; Complete Time: 23:19 [facility] 07/06 21:57 Order name: Troponin (emerg Dept Use Only); Complete Time: 23:21 [facility] 07/06 21:57 Order name: Blood Culture Adult (2) [facility] 07/06 21:57 Order name: Procalcitonin; Complete Time: 00:00 [facility] 07/06 21:57 Order name: Lactate; Complete Time: 23:19 [facility] 07/06 21:57 Order name: Urine Culture [facility] 07/06 21:57 Order name: Urine Microscopic Only; Complete Time: 01:04 [facility] 07/06 21:57 Order name: XRAY Chest (1 view) [facility] 07/06 21:57 Order name: EKG; Complete Time: 21:58 [facility] 07/06 21:57 Order name: Cardiac monitoring; Complete Time: 00:59 [facility] 07/06 21:57 Order name: EKG - Nurse/Tech; Complete Time: 00:59 [facility] 07/06 21:57 Order name: IV Saline Lock; Complete Time: 23:50 [facility] 07/06 21:57 Order name: Labs collected and sent; Complete Time: 23:50 [facility] 07/06 21:58 Order name: Basic Metabolic Panel; Complete Time: 23:21 [facility] 07/06 21:58 Order name: CBC with Automated Diff; Complete Time: 23:19 [facility] 07/06 23:21 Order name: CT Chest Abdomen Pelvis W/O Contrast [facility] 07/06 23:52 Order name: Urine Dipstick--Ancillary (enter results); Complete Time: 00:00 07/07 00:26 Order name: COVID-19/FLU A+B; Complete Time: 00:34 [facility] 07/07 00:34 Order name: CPK; Complete Time: 02:11 [facility] 07/07 00:40 Order name: CT Head Brain wo Cont [facility] 07/06 21:57 Order name: O2 Per Protocol; Complete Time: 23:50 [facility] 07/06 21:57 Order name: O2 Sat Monitoring; Complete Time: 23:50 [facility] 07/06 21:57 Order name: Urine Dipstick-Ancillary (obtain specimen); Complete Time: 23:50 [facility] Administered Medications: 07/06 22:50 Drug: NS 0.9% 1000 ml Route: IV; Rate: 1 bolus; Site: right antecubital; ll2 07/07 00:58 Drug: NS 0.9% 1000 ml Route: IV; Rate: 1 bolus; Site: right antecubital; ll2 Disposition: 05:57 Co-signature as Attending Physician, Otoniel Nevarez MD. mh7 Disposition: 07/07/20 02:21 Discharged to Home. Impression: Headache, Nausea, Generalized Fatigue-Chronic. - Condition is Stable. - Discharge Instructions: General Headache Without Cause, Nausea, Adult, Fatigue. - Prescriptions for Zofran ODT 4 mg Oral tablet,disintegrating - place 1 tablet by TRANSLINGUAL route every 8 hours As needed; 6 tablet. - Medication Reconciliation Form, Thank You Letter, Antibiotic Education, Prescription Opioid Use form. - Follow up: Private Physician; When: 1 - 2 days; Reason: Worsening of condition, Recheck today's complaints, Continuance of care, Re-evaluation by your physician. - Problem is an ongoing problem. - Symptoms have improved. Signatures: Dispatcher [employer] EDAK Kendall Reyes PA PA [facility] Sandra Aguirre RN RN ca1 Viviana Hackett RN RN 2 Otoniel Nevarez MD MD 7 Corrections: (The following items were deleted from the chart) 07/06 23:26 21:58 Abdomen Pelvis W Con+CT.RAD.BRZ ordered. EDAK EDAK 23:38 21:58 CORONAVIRUS+MR.LAB.BRZ ordered. EDAK EDAK 23:38 21:58 Influenza Screen (A \T\ B)+BA.LAB.BRZ ordered. EDAK EDAK 07/07 02:30 02:21 07/07/2020 02:21 Discharged to Home. Impression: Headache; Nausea; Generalized ll2 Fatigue-Chronic. Condition is Stable. Forms are Medication Reconciliation Form, Thank You Letter, Antibiotic Education, Prescription Opioid Use. Follow up: Private Physician; When: 1 - 2 days; Reason: Worsening of condition, Recheck today's complaints, Continuance of care, Re-evaluation by your physician. Problem is an ongoing problem. Symptoms have improved. [facility]
[2020-07-07 02:35] VITALS: BP 116/77; TEMP 97.9; O2SAT 95
--- NOTE | 2020-07-07 07:24 | EKG ---
Test Date: 2020-07-07 Test Time: 01:05:06 Room Attendants: WILLIAM MEASUREMENT RESULTS: Intervals: Rate: 56 ID: [id number] QRSD: 108 QT: 478 QTc: 461 [place]: P: 35 ID: [id number] QRS: -2 T: 3 INTERPRETIVE STATEMENTS: Sinus bradycardia Incomplete right bundle branch block Nonspecific T wave abnormality Abnormal ECG Compared to ECG 03/12/2017 06:53:39 T-wave abnormality now present Sinus rhythm no longer present ST (T wave) deviation no longer present Prolonged QT interval no longer present Electronically Signed On 07-07-20 07:23:54 INDUSTRIAL CONTROLLER by Armando Bowling
--- NOTE | 2020-07-07 12:28 | RAD REPORT ---
EXAM DESCRIPTION: RAD - Chest Single View - 07/06/2020 10:16 pm CLINICAL HISTORY: weakness Chest pain. COMPARISON: Chest Single View dated 03/11/2017 FINDINGS: Portable technique limits examination quality. The lungs are grossly clear. The heart is upper limit of normal in size. No displaced fractures. IMPRESSION: No acute intrathoracic process suspected.
--- NOTE | 2020-07-07 19:21 | RAD REPORT ---
EXAM DESCRIPTION: CT of the chest, abdomen, and pelvis without contrast CLINICAL HISTORY: Fatigue, abdominal pain COMPARISON: None Available. TECHNIQUE: CT of the chest, abdomen and pelvis performed without IV contrast. Suboptimal evaluation of the soft tissues, solid organs, and vasculature due to lack of IV contrast. FINDINGS: Chest: Thyroid: No abnormalities of the visualized thyroid. Great Vessels: Great vessels have normal anatomic configuration. Thoracic Aorta: No abnormalities of the thoracic aorta identified. Pulmonary arteries: The main pulmonary artery is not dilated. Heart: No cardiomegaly, significant pericardial effusion, or coronary artery atherosclerosis Lymph Nodes: No enlarged mediastinal lymph nodes identified. Esophagus: No abnormalities of the esophagus identified Other: No additional findings. Lungs: Minimal bilateral dependent atelectasis. No confluent airspace consolidation. Respiratory alma on artifact. Pleura: No pleural effusion or pneumothorax. Trachea/Airways: No abnormalities of the visualized trachea or airways. Abdomen: Liver: The liver has normal size and density. Gallbladder: Prior cholecystectomy. Spleen, Pancreas, and Adrenal Glands: The spleen, pancreas, and adrenal glands are unremarkable. Kidneys: No hydronephrosis or obstructing ureteral calculus. Mild bilateral nonspecific perinephr ic fat stranding and mild bilateral renal atrophy. Vasculature: Aortoiliac atherosclerosis. IVC is unremarkable. Stomach: The stomach and duodenum have normal course. Other: No free intraperitoneal air. No free fluid or lymphadenopathy. Tiny fat-containing umbilic al hernia. Pelvis: Bladder: Urinary bladder is unremarkable. Bowel: No dilated loops of large or small bowel. Scattered diverticula of the colon. Appendix: Not identified. Pelvis: Uterus is not enlarged. Bones: Bilateral L4 pars defects with rate 1 spondylolisthesis of L4 over L5. Multilevel endplate spo ndylosis and facet arthropathy throughout the spine. Osteoarthritic change of the shoulders and hips. IMPRESSION: 1. No acute inflammatory or obstructive process identified. 2. Diverticulosis without evidence of acute diverticulitis. This exam was performed according to our departmental dose-optimization program, which includes autom ated exposure control, adjustment of the mA and/or kV according to patient size and/or use of iterati ve reconstruction technique. Electronically signed by: Rocco King 07/07/2020 12:28 AM FISCAL SPECIALIST Due to temporary technical issues with the PACS/Fluency reporting system, reports are being signed by the in house radiologists without review as a courtesy to insure prompt reporting. The interpreting radiologist is fully responsible for the content of the report.
--- NOTE | 2020-07-07 19:56 | RAD REPORT ---
EXAM DESCRIPTION: Head Brain Wo Cont CLINICAL HISTORY: 60 years Female HEADACHE COMPARISON: None TECHNIQUE: Contiguous axial images of the brain were obtained without the administration of intraven ous contrast.This exam was performed according to our departmental dose-optimization program which in cludes use of Automated Exposure Control, adjustment of the mA and/or kV according to patient size an d/or use of iterative reconstruction technique. DLP: 768 mGy*cm FINDINGS: Brain: No acute intracranial hemorrhage. No extra-axial collection. No mass effect or amauri iation. Mild prominence of the sulci and cisterns. Confluent periventricular and subcortical white matter hypodensity is noted. Ventricles: Within normal limits in size. Globes and orbits: No acute abnormality. Bones: No acute osseous finding Paranasal sinuses: Paranasal sinuses are clear. Mastoid air cells: Well pneumatized. Soft tissues: Within normal limits IMPRESSION: No acute intracranial hemorrhage, hydrocephalus or herniation. Cerebral volume loss and chronic small vessel ischemic changes. Consider MRI brain for further evalua tion. Electronically signed by: Luis Chavez DO 07/07/2020 1:44 AM RAILWAY ENGINEER Due to temporary technical issues with the PACS/Fluency reporting system, reports are being signed by the in house radiologists without review as a courtesy to insure prompt reporting. The interpreting radiologist is fully responsible for the content of the report.
== END 2020-07-07 02:30 | disposition home or self-care (01) ==
LOC: ER 20:59
DX: R53.82 Chronic fatigue, unspecified (principal); R11.0 Nausea; Z20.822 Contact with and (suspected) exposure to COVID-19; E11.9 Type 2 diabetes mellitus without complications; F32.9 Major depressive disorder, single episode, unspecified; Z79.4 Long term (current) use of insulin
CPT/HCPCS: 93005; 87040 ×2; 87088; 85025; 87086; 80048; 36415; 83735; 82550; 85610; 82565; 80076; 83605; 84484; 84145; 83880; 0240U; 70450; 71250; 74176; 71045; 99284; J7030; 81003; 81015

== ENCOUNTER 2022-01-16 13:38 | Emergency (ER) | payer OTHER ==
--- OUTSIDE RECORDS SUMMARY | 2022-01-16 13:42 | XMS REPORT | Continuity of Care Document ---
:1960 Author Organization [facility] Address [address] [place] [address] Care Team Providers Name Role Phone PCP, DOES NOT HAVE A Primary Care Physician Unavailable Only, Db Test Attending Clinician Unavailable Ebrahim BRACELET [employer] BR[employer]CH MAKER Attending Clinician EBRAHIM Attending Clinician Unavailable Reddy Attending Clinician Unavailable Rani CUEVAS T Attending Clinician Unavailable JAVIER Attending Clinician Unavailable Bhavna GRANADOS Attending Clinician Unavailable Reddy Admitting Clinician Unavailable Payers Payer Name Policy Type Policy Number Effective Date Expiration Date Daria hall [facility] [id number] 2019 BENEFIT PLAN (PPO) 00:00:00 MULTIPLAN GENERIC [id number] 2010 00:00:00 Problems Condition Condition Condition Status Onset Resolution Last Treating Co mments Source Name Details Category Date Date Treatment Clinician Date Body mass Body Mass Problem Active Dustin andrew index 30+ Index 30+ 9-10 Fami ly - obesity - Obesity 00:00: Prac tic 00 e Liver Liver Problem Active [facility] function Function 9-10 Family tests Tests 00:00: Practic abnormal Abnormal 00 e Influenza Influenza Problem Active Dustin andrew vaccinatio Vaccinatio 9-10 Fa binta n declined n Declined 00:00: Pr actic 00 e Thrombocyt Thrombocyt Problem Active [facility] openic openic 6-18 Family disorder Disorder 00:00: Practi c 00 e Secondary Secondary Problem Active Dustin andrew polycythem Polycythem -18 Fa binta ia ia 00:00: Practic 00 e Increased Increased Problem Active Dustin andrew liver Liver 6-18 Family function Function 00:00: Practi c 00 e Hypoglycem Hypoglycem Problem Active [facility] ia ia 9-02 Family 00:00: Practic 00 e Chronic Chronic Problem Active [facility] kidney Kidney 6-13 Family disease Disease 00:00: Practic 00 e Elevated Elevated Problem Active Sun ge level of Level of 6-13 Family transamina Transamina 00:00: Pr actic se and se and 00 e lactic Lactic acid Acid dehydrogen Dehydrogen ase ase Chest pain Chest Pain Problem Active [facility] 8-27 Family 00:00: Practic 00 e Type 2 Type 2 Problem Active [facility] diabetes Diabetes 5-24 Family mellitus Mellitus 00:00: Practi c e Obesity Obesity Problem Active [facility] 5-24 Family 00:00: Practic 00 e Anxiety Anxiety Problem Active [facility] disorder Disorder 5-24 Family 00:00: Practic e Depressive Depressive Problem Active [facility] disorder Disorder -24 Family 00:00: Practic e Migraine Migraine Problem Active Sun ge 5-24 Family 00:00: Practic 00 e Essential Essential Problem Active Dustin morales hypertensi Hypertensi 5-24 Fa binta on on 00:00: Practic e Gastro-eso Gastro-eso Problem Active [facility] phageal phageal 5-24 Family reflux Reflux 00:00: Practic disease Disease 00 e with with esophagiti Esophagiti s s Constipati Constipati Problem Active [facility] on on 5-24 Family 00:00: Practic 00 e Status Status Problem Active [facility] migrainosu Migrainosu 5-24 Fa binta s s 00:00: Practic e Hypertensi Hypertensi Problem Active [facility] ve ve 5-24 Family disorder Disorder 00:00: Practi c e SNOMED CT SNOMED CT Problem Active Dustin morales Concept Concept 5-24 Family 00:00: Practic 00 e Finding of Finding of Problem Active [facility] defecation Defecation 5-24 Fa binta 00:00: Practic 00 e General General Problem Active [facility] finding of Finding of -24 Fa binta observatio Observatio 00:00: Pr actic n of n of 00 e patient Patient Clinical Clinical Problem Active Dino tara finding Finding 5-24 Family 00:00: Practic 00 e Allergies, Adverse Reactions, Alerts Allergy Allergy Status Severity Reaction(s) Onset Inactive Treating Comm ents Source Name Type Date Date Clinician NO KNOWN Drug Active Univers ALLERGIE Class ity of S [facility] Social History Social Habit Start Date Stop Date Quantity Comments Source Exposure to 2021-12-30 2022-01-09 Yes [facility] SARS-CoV-2 00:00:00 18:37:00 [place] [facility] (event) [facility] Alcohol intake 2018-07-04 2018-07-04 Current [facility] 00:00:00 00:00:00 non-drinker of [facility] alcohol (finding) Branch Tobacco use and 2017-11-23 2017-11-23 Smokeless tobacco Un iversity of exposure 00:00:00 00:00:00 non-user [facility] Sex Ass[birth year] At [birth year] Universit y of 00:00:00 00:00:00 [facility] Smoking Status Start Date Stop Date Source Never Smoker [facility] P ramez Unknown if ever smoked [facility] Medications Ordered Filled Start Stop Current Ordering Indication Dosage Frequency Signature Comments Components Source Medication Medication Date Date Medication? Clinician (SIG) Name Name DIVALPROEX Yes 250mg TAKE 1 Univ ers 250 mg EC 3-22 TABLET BY ity o f tablet 00:00: MOUTH [place] 00 EVERY 8 Medical (EIGHT) Branch HOURS. ibuprofen Yes 200mg Take 200 Uni vers (ADVIL) 200 1-07 mg by ity of mg tablet 16:37: mouth [place] 35 every 6 Medical (six) Branch hours as needed. diphenhydrA Yes 25mg Take 25 mg Univers MINE 1-07 by mouth ity of (BENADRYL 16:37: every 4 [place] ALLERGY) 25 35 (four) Medica l mg tablet hours as Branch needed for Allergies. PSYLLIUM Yes Take 2 Univers HUSK 1-07 TAB-CAP/M2 ity of (METAMUCIL 16:37: by mouth [place] ORAL) 35 (two) Medical times Branch daily. ISOMETHEPTE Yes 2{capsu Take 2 U nivers N-CAF-ACETA 1-07 le} capsules ity of MINOPHEN 16:37: by mouth [place] ORAL 35 daily. Medical Indication Branch s: take at onset and then 1 capsule q1hr prn rizatriptan 2018- Yes 10mg Take 1 Univ ers 10 mg 1-07 tablet by ity of disintegrat 00:00: [place] 00 needed for Med ical Migraine. Branch May repeat in 2 hours if needed JANUVIA 100 2019-0 Yes Univer s mg tablet 1-06 ity of 00:00: [place] [facility] propranolol 2018- Yes 20mg Take 1 Univ ers 20 mg 2-05 tablet by ity of tablet 00:00: mouth 2 [place] (two) Medical times Branch daily. ARIPiprazol 2017- Yes Univer s e 2 mg 5-27 ity of tablet 00:00: [place] [facility] TRULICITY 2017-0 Yes Univers 0.75 mg/0.5 5-24 ity of mL PnIj 00:00: [place] [facility] ONE TOUCH 2017- Yes Univers DELICA 33 5-24 ity of gauge Misc 00:00: [place] [facility] JARDIANCE 2017-0 Yes Univers 25 mg Tab 5-24 ity of 00:00: [place] [facility] ONETOUCH 2017-0 Yes Univers VERIO strip 5-24 ity of 00:00: [place] [facility] metformin 2017-0 Yes Univers ER 500 mg 5-24 ity of 24 hr 00:00: [place] tablet 00 Medical Branch lisinopril 2017-0 Yes 5mg Take 5 mg Un zbigniew 5 mg tablet 5-17 by mouth ity of 00:00: daily. Medical Branch LANTUS Yes INJECT Univers SOLOSTAR 5-15 UNDER THE ity of 100 unit/mL 00:00: SKIN 35 Amaury as (3 mL) 00 UNITS Medical injection EVERY DAY Branc h methylpheni 2017- Yes TAKE 1 Univ ers date HCl 36 5-01 TABLET BY ity of mg 24 hr 00:00: MOUTH [place] tablet 00 EVERY Medical MORNING Branch DIRECTED escitalopra Yes TAKE 2 Univ ers m oxalate 4-30 TABLETS BY ity of 20 mg 00:00: MOUTH [place] tablet 00 EVERY DAY Medical Branch esomeprazol 2017- Yes TAKE ONE Un zbigniew e 40 mg 4-02 CAPSULE BY ity of capsule 00:00: MOUTH [place] 00 TWICE A Medical DAY Branch BD 2018-0 Yes Univers ULTRAFINE 3-13 ity of III MINI 00:00: [place] PEN 31 00 Medical gauge x Branch 09/10" Ndle aripiprazol aripiprazol No aripiprazo [place] e 2 mg e 2 mg le 2 mg Family tablet TAKE tablet TAKE tablet Practic 1/2 TABLET 1/2 TABLET TAKE 1/2 e BY MOUTH BY MOUTH TABLET BY EVERY EVERY MOUTH EVENING EVENING EVERY EVENING BD BD No BD [facility] Ultra-Fine Ultra-Fine Ultra-Fine Family Mini Pen Mini Pen Mini Pen Pra ctic Needle 31 Needle 31 Needle 31 e gauge x gauge x gauge x 09/10" USE 09/10" USE 09/10" USE ONCE A DAY ONCE A DAY ONCE A DAY Cinnamon Cinnamon No Cinnamon Dustin andrew [facility] Pract[facility] e Concerta 36 Concerta 36 No Concerta [facility] mg mg 36 mg Family tablet,exte tablet,exte tablet,ext Practic nded nded ended e release release release TAKE 1 TAKE 1 TAKE 1 TABLET BY TABLET BY TABLET BY MOUTH EVERY MOUTH EVERY MOUTH DAY IN THE DAY IN THE EVERY DAY MORNING MORNING IN THE DIRECTED DIRECTED MORNING DIRECTED escitalopra escitalopra No escitalopr [facility] m 20 mg m 20 mg am 20 mg Famil y tablet TAKE tablet TAKE tablet Practic 2 TABLETS 2 TABLETS TAKE 2 e BY MOUTH BY MOUTH TABLETS BY EVERY DAY EVERY DAY MOUTH EVERY DAY fenofibrate fenofibrate No fenofibrat [place] 160 mg 160 mg e 160 mg Family tablet TAKE tablet TAKE tablet Practic 1 TABLET BY 1 TABLET BY TAKE 1 e MOUTH EVERY MOUTH EVERY TABLET BY DAY DAY MOUTH EVERY DAY fiber fiber No fiber [facility] e FreeStyle FreeStyle No FreeStyle [facility] Elis 14 Elis 14 Elis 14 Fam fay Day Sensor Day Sensor Day Sensor Practic e FreeStyle FreeStyle No FreeStyle [place] Elis 14 Elis 14 Elis 14 Fam fay Day Sensor Day Sensor Day Sensor Practic kit USE kit USE kit USE e DIRECTED DIRECTED DIRECTED (CHANGE (CHANGE (CHANGE EVERY 14 EVERY 14 EVERY 14 DAYS DAYS DAYS [place] 3 3 [place] 3 3 No [place] 3 3 [place] times daily times daily times Family daily Practic e omeprazole omeprazole No omeprazole [place] 40 mg 40 mg 40 mg Family capsule,del capsule,del capsule,de Practic ayed ayed layed e release release release TAKE 1 TAKE 1 TAKE 1 CAPSULE BY CAPSULE BY CAPSULE BY MOUTH EVERY MOUTH EVERY MOUTH MORNING MORNING EVERY MORNING trazodone trazodone No trazodone [facility] 50 mg 50 mg 50 mg Family tablet TAKE tablet TAKE tablet Practic 1 - 3 1 - 3 TAKE 1 - 3 e TABLET BY TABLET BY TABLET BY MOUTH EVERY MOUTH EVERY MOUTH EVENING EVENING EVERY NEEDED NEEDED EVENING NEEDED triamcinolo triamcinolo No triamcinol [facility] ne ne one Family acetonide acetonide acetonide Practic 0.1 % 0.1 % 0.1 % e dental dental dental paste paste paste Trijardy XR Trijardy XR No 2 Q1D Triharirdy [place] 12.5 mg-2.5 12.5 mg-2.5 XR 12.5 Family mg-1,000 mg mg-1,000 mg mg-2.5 Practic tablet, tablet, mg-1,000 e extended extended mg tablet, release release extended Take 2 Take 2 release tablets tablets Take 2 every day every day tablets by oral by oral every day route in route in by oral the morning the morning route in for 90 for 90 the days. days. morning for 90 days. Trijardy XR [facility]y [facility] 5 mg-2.5 5 mg-2.5 XR 5 Family mg-1,000 mg mg-1,000 mg mg-2.5 Practic tablet, tablet, mg-1,000 e extended extended mg tablet, release release extended TAKE 2 TAKE 2 release TABLETS TABLETS TAKE 2 EVERY DAY EVERY DAY TABLETS BY ORAL BY ORAL EVERY DAY ROUTE IN ROUTE IN BY ORAL THE MORNING THE MORNING ROUTE IN FOR 90 FOR 90 THE DAYS. DAYS. MORNING FOR 90 DAYS. Immunizations Ordered Filled Date Status Comments Source Immunization Name Immunization Name Non-US Vaccine Non-US Vaccine 2021-04-10 Completed [facility] COVID-19 IV COVID-19 IV 00:00:00 Practice (COVAXIN) (COVAXIN) COVID-19 COVID-19 2020-10-03 Completed [facility] Family (SARS-COV-2) (SARS-COV-2) 00:00:00 Practice vaccine, vaccine, unspecified unspecified SARS-COV-2 COVID-19 2020-10-03 [facility] PFIZER VACCINE 00:00:00 [facility] COVID-19 COVID-19 2020-09-11 Completed [facility] (SARS-COV-2) (SARS-COV-2) 00:00:00 Practice vaccine, vaccine, unspecified unspecified SARS-COV-2 COVID-19 2020-09-11 Completed Unive rsity of PFIZER VACCINE 00:00:00 [facility] tetanus toxoid, tetanus toxoid, 2014-06-28 Completed Vill [facility] Family adsorbed adsorbed 00:00:00 Practice influenza, influenza, Unknown Completed [facility] recombinant, recombinant, Practice quadrIvalent,inject quadrIvalent,injec able, preservative table, free preservative free Vital Signs Vital Name Observation Time Observation Value Comments Source BP Diastolic 2021-11-26 00:00:00 71 mm[Hg] [facility] Height 2021-11-26 00:00:00 66.5 [in_i] [facility] Practice BMI (Body Mass 2021-11-26 00:00:00 30.7 kg/m2 [facility] BP Systolic 2021-11-26 00:00:00 115 mm[Hg] [facility] Body Weight 2021-11-26 00:00:00 193 [lb_av] [facility] Practice BP Diastolic 2021-05-28 00:00:00 77 mm[Hg] [facility] Height 2021-05-28 00:00:00 66.5 [in_i] [facility] Practice BMI (Body Mass 2021-05-28 00:00:00 31.9 kg/m2 [facility] Index) Practice BP Systolic 2021-05-28 00:00:00 131 mm[Hg] [facility] Practice Body Weight 2021-05-28 00:00:00 200.6 [lb_av] [facility] Practice BP Diastolic 2021-03-07 00:00:00 61 mm[Hg] [facility] Height 2021-03-07 00:00:00 66.5 [in_i] [facility] Practice BMI (Body Mass 2021-03-07 00:00:00 31.3 kg/m2 [facility] Index) Practice BP Systolic 2021-03-07 00:00:00 122 mm[Hg] [facility] Practice Body Weight 2021-03-07 00:00:00 197 [lb_av] [facility] Practice BP Diastolic 2020-12-10 00:00:00 83 mm[Hg] [facility] Family Practice Height 2020-12-10 00:00:00 66.5 [in_i] [facility] BMI (Body Mass 2020-12-10 00:00:00 32.2 kg/m2 [facility] Index) Practice BP Systolic 2020-12-10 00:00:00 129 mm[Hg] [facility] Body Weight 2020-12-10 00:00:00 202.6 [lb_av] [facility] BP Diastolic 2020-09-05 00:00:00 80 mm[Hg] [facility] Height 2020-09-05 00:00:00 66.5 [in_i] [facility] BMI (Body Mass 2020-09-05 00:00:00 32.4 kg/m2 [facility] BP Systolic 2020-09-05 00:00:00 133 mm[Hg] [facility] Body Weight 2020-09-05 00:00:00 204 [lb_av] [facility] BP Diastolic 2020-06-06 00:00:00 82 mm[Hg] [facility] Height 2020-06-06 00:00:00 66.5 [in_i] [facility] BMI (Body Mass 2020-06-06 00:00:00 33.6 kg/m2 [facility] Practice BP Systolic 2020-06-06 00:00:00 136 mm[Hg] [facility] Body Weight 2020-06-06 00:00:00 211.4 [lb_av] [facility] Procedures Procedure Date / Time Performing Clinician Source Performed Bilateral Extraction of 2016-11-26 00:00:00 Don Holcomb Cataracts Practice Knee Arthroscopy/surgery 2003-06-28 00:00:00 Dustin morales [facility] Laparoscopic 1998-06-28 00:00:00 [facility] Kirk stephen Cholecystectomy Practice Appendectomy 1974-06-28 00:00:00 [facility] Kirk stephen Practice Plan of Care Planned Activity Planned Date Details Comments Source Diagnostic Test 2021-11-26 glucose, fingerstick, Dustin Holcomb Pending 00:00:00 blood [code = Practice glucose, fingerstick, blood] Diagnostic Test 2021-11-26 hemoglobin A1C, [facility] Marcie mendoza Pending 00:00:00 fingerstick [code = Practice hemoglobin A1C, fingerstick] Future Appointment 2022-03-03 Bala [place], [id number] [facility] 13:45:[address] Practice [address], [place] [address] Future Appointment 2022-02-26 Bala Cordova, Hossein [facility] 00:00:[address] Practice [address], [place] [address] Encounters Start End Encounter Admission Attending Care Care Encounter Source Date/Time Date/Time Type Type Clinicians Facility Department ID 2022-01-09 2022-01-09 Laboratory Only, Ang Db Test [facility] [id number] Univers 18:45:00 19:00:00 Only [id number] Amaury as COLUMBA?BLEA [id number] [address] MEDICAL OFFICE BUILDING 2022-01-09 2022-01-09 Outpatient R DALILA [facility] [id number] Univers 18:45:00 18:52:31 [facility] 2022-01-09 2022-01-09 Outpatient R [facility] [id number] Univers 18:45:00 18:45:00 [id number] [facility] 2021-12-17 2021-12-17 Outpatient Daniel_T VFP VFP [id number] 20 [facility] 09:19:00 09:19:00 [id number] Family Practic e 2021-11-26 2021-11-26 Outpatient Alexanderel_T VFP VFP [id number] 20 [facility] 01:05:00 01:05:00 [id number] Family Practic e 2021-11-26 2021-11-26 Bala VFP [place] - [id number] V illage 00:00:00 00:00:00 Sejeannette [facility] Family CordovaJenni - Practi rocco BURNS: [id number] THOMAS_ARIELLE_Frank e [address], [place] [address] , Ph. 2021-07-22 2021-07-22 Outpatient Daniel_T VFP VFP [id number] 20 [facility] 04:02:00 04:02:00 [id number] Family Practic e 2021-07-01 2021-07-01 Letter RENA Saravia [id number] 00:00:00 00:00:00 (Out) Sushila RADER [id number] it y [facility] [id number] Amaury as [id number] [address] 2021-06-29 2021-06-29 Outpatient Son HERRERA [facility] [id number] Univers 15:45:00 16:16:26 EDNA cummins [facility] 2021-06-05 2021-06-05 Outpatient Daniel_T VFP VFP [id number] [address] [place] [address] 04:00:00 04:00:00 [id number] Family Practic e 2021-05-28 2021-05-28 Outpatient Daniel_T VFP VFP [id number] [address] [place] [address] 09:45:00 09:45:00 [id number] Family Practic e 2021-05-28 2021-05-28 Bala VFP [place] - [id number] V illage 00:00:00 00:00:00 [facility] Jenni Cordova - Juliana valiente MD: [id number] THOMAS_ARIELLE_Frank godwin [address] [facility], [address] [address] , Ph. 2021-03-11 2021-03-11 Outpatient Daniel_T VFP VFP [id number] [address] [place] [address] 07:31:00 07:31:00 [id number] Family Practic e 2021-03-07 2021-03-07 Outpatient Daniel_T VFP VFP [id number] [address] [place] [address] 03:31:00 03:31:00 [id number] Family Practic e 2021-03-07 2021-03-07 Bala VFP [place] - [id number] V illage 00:00:00 00:00:00 [facility] Jenni Cordova - Juliana valiente MD: [id number] THOMAS_ARIELLE_Frank godwin [address] [address] , Ph. 2020-12-12 2020-12-12 Outpatient Daniel_T VFP VFP [id number] [address] [place] [address] 07:39:00 07:39:00 [id number] Family Practic e 2020-12-10 2020-12-10 Outpatient Daniel_T VFP VFP [id number] [address] [place] [address] 04:36:00 04:36:00 [id number] Family Practic e 2020-12-10 2020-12-10 Bala VFP [place] - [id number] V illage 00:00:00 00:00:00 [facility] Family CordovaJenni MD: [id number] Johnnie godwin [facility], [address] [address] , Ph. 2020-10-03 2020-10-03 Outpatient Son GRANADOS [facility] [id number] Univers 13:20:00 13:18:44 [facility] 2020-09-11 2020-09-11 Outpatient Son GRANADOS [facility] [id number] Univers 13:20:00 13:07:23 [facility] 2020-09-10 2020-09-10 Outpatient Daniel_T VFP VFP [id number] [address] [place] [address] 09:03:00 09:03:00 [id number] Family Practic e 2020-09-10 2020-09-10 Outpatient Daniel_T VFP VFP [id number] [address] [place] [address] 09:03:00 09:03:00 [id number] Family Practic e 2020-09-05 2020-09-05 Outpatient Daniel_T VFP VFP [id number] [address] [place] [address] 03:31:00 03:31:00 [id number] Family Practic e 2020-09-05 2020-09-05 Bala VFP [place] - [id number] V illage 00:00:00 00:00:00 [facility] Family CordovaJenni MD: [id number] Johnnie godwin Shadow [address] [facility], [address] [address] , Ph. 2020-06-11 2020-06-11 Outpatient Daniel_T VFP VFP [id number] [address] [place] [address] 01:09:00 01:09:00 [id number] Family Practic e 2020-06-06 2020-06-06 Outpatient Danikamran_T VFP VFP [id number] [id number] [facility] 02:13:00 02:13:00 Family Practic e 2020-06-06 2020-06-06 Bala VFP [place] - [id number] V illage 00:00:00 00:00:00 Dilon [facility] Family Art Medical - Practi rocco BURNS: [id number] VM_HOU_Alexander e Shadow [facility] [address] [address] , Ph. 2020-06-03 2020-06-03 Outpatient Art_T VFP P [id number] [facility] 03:40:00 03:40:00 Family Practic e Results Test Description Test Time Test Comments Results Result Comments Source Glucose [Mass/volume] in Capillary blood 2021-11-26 11:28:20 Test Item Value Reference Range Interpretation Comme nts Blood Glucose: mg/dl (test code = Blood Glucose: mg/dl) [facility] in Capillary [id number] 11:28:20 Test Item Value Reference Range Interpretation Comments Blood Glucose: mg/dl (test code = Blood 259 Glucose: mg/dl) [facility] [id number] 11:28:10 Test Item Value Reference Range Interpretation Comments Hemoglobin A1C Fingerstick: (test code 7.6 = Hemoglobin A1C Fingerstick:) [facility] [id number] 11:28:10 Test Item Value Reference Range Interpretation Comments Hemoglobin A1C Fingerstick: (test code 7.6 = Hemoglobin A1C Fingerstick:) [facility] [id number] 08:13:23 Test Item Value Reference Range Interpretation Comments Hemoglobin A1C Fingerstick: (test code 6.3 = Hemoglobin A1C Fingerstick:) [facility] [Mass/volume] in Capillary [id number] 08:10:07 Test Item Value Reference Range Interpretation Comments Blood Glucose: mg/dl (test code = Blood 209 Glucose: mg/dl) [facility]
[2022-01-16 14:55] LABS: Urine Blood Negative (Negative); Urine Glucose 2+ (Negative); Urine Protein Negative (Negative); Urine pH 6.5 (5.0-7.0)
[2022-01-16 15:05] LABS: Absolute Lymphocytes (CBC) 1.4 K/uL (0.7-4.9); Hematocrit 44.2 % (36.0-45.0); MCV 82.1 fL (80-100); MPV 9.2 fL (7.6-11.3); RBC Red Blood Cell Count 5.39 M/uL (3.86-4.86)
[2022-01-16] MEDS ORDERED: NA CHLORIDE 0.9% 1,000 ML ONE (15:23)
[2022-01-16] MEDS ORDERED: ONDANSETRON 4 MG/2 ML VIAL ONE (15:23)
[2022-01-16] MEDS ORDERED: ACETAMINOPHEN 325 MG TABLET ONE (15:23)
[2022-01-16 15:25] LABS: Albumin 3.7 g/dL (3.4-5.0); Bilirubin Total 0.7 mg/dL (0.2-1.0); Potassium 4.7 mmol/L (3.5-5.1); Protein, Total 7.7 g/dL (6.4-8.2)
[2022-01-16 15:46] LABS: Urine Bacteria 20-50 /HPF (<20); Urine RBC <5 /HPF (None Seen)
--- NOTE | 2022-01-16 17:02 | ER ---
Nurse's Notes [facility] Name: Dede Mcmanus Age: 61 yrs Sex: Female : 1960 Arrival Date: 01/16/2022 Time: 13:40 Bed 26 Private MD: Taylor Blackburn Diagnosis: Headache;Nausea Presentation: 01/16 14:21 Chief complaint: Patient states: COVID exposure - headache, nausea X 1 day. Coronavirus ld1 screen: Client presents with at least one sign or symptom that may indicate coronavirus-19. Standard/surgical mask placed on the client. Ebola Screen: No symptoms or risks identified at this time. Initial Sepsis Screen: Does the patient meet any 2 criteria? No. Patient's initial sepsis screen is negative. Does the patient have a suspected source of infection? No. Patient's initial sepsis screen is negative. Risk Assessment: Do you want to hurt yourself or someone else? Patient reports no desire to harm self or others. Onset of symptoms was January 16, 2022. 14:21 Method Of Arrival: Ambulatory ld1 14:21 Acuity: SHARIFA 4 ld1 Triage Assessment: 14:21 Headache History: Denies prior headaches. General: Appears in no apparent distress. ld1 comfortable, Behavior is calm, cooperative, appropriate for age. Pain: Complains of pain in face Pain does not radiate. Pain currently is 8 out of 10 on a pain scale. Quality of pain is described as throbbing, Pain began gradually, Is continuous. EENT: No signs and/or symptoms were reported regarding the EENT system. Neuro: Level of Consciousness is awake, alert, obeys commands, Oriented to person, place, time, situation. Cardiovascular: Capillary refill < 3 seconds Patient's skin is warm and dry. Respiratory: Airway is patent Respiratory effort is even, unlabored. GI: Abdomen is round non-distended. GI: Reports nausea. : No signs and/or symptoms were reported regarding the genitourinary system. Derm: No signs and/or symptoms reported regarding the dermatologic system. Historical: - Allergies: 14:21 No Known Allergies; ld1 - PMHx: 14:21 Depression; Diabetes - IDDM; ADD/ADHD; Migraines; Diverticulitis; ld1 - Immunization history:: Adult Immunizations up to date, Adult Immunizations up to date, Client reports receiving the 2nd dose of the Covid vaccine. - Social history:: Smoking status: Patient denies any tobacco usage or history of. Patient uses alcohol, but reports only rare drinking. - Family history:: not pertinent. - Hospitalizations: : No recent hospitalization is reported. Screenin:25 Abuse screen: Denies threats or abuse. Nutritional screening: No deficits noted. jb4 Tuberculosis screening: No symptoms or risk factors identified. Fall Risk None identified. Assessment: 15:25 General: Appears in no apparent distress. uncomfortable, Behavior is. Pain: Complains jb4 of pain in headache Pain does not radiate. Pain currently is 10 out of 10 on a pain scale. Neuro: Level of Consciousness is awake, alert, obeys commands, Oriented to person, place, time, situation. Cardiovascular: Patient's skin is warm and dry. Respiratory: Airway is patent Respiratory effort is even, unlabored, Respiratory pattern is regular, symmetrical. GI: Abdomen is round non-distended, obese, Reports nausea, Patient currently denies vomiting. Derm: Skin is intact, Skin is pink, warm \T\ dry. Musculoskeletal: Circulation, motion, and sensation intact. Range of motion: intact in all extremities. 17:15 Reassessment: Patient appears in no apparent distress at this time. Patient and/or jb4 family updated on plan of care and expected duration. Pain level reassessed. Patient is alert, oriented x 3, equal unlabored respirations, skin warm/dry/pink. Vital Signs: 14:21 Pulse 60; Resp 18; Pulse Ox 99% on R/A; ld1 14:25 BP 123 / 79; Pulse 58; Resp 18; Temp 99.4(O); Pulse Ox 99% ; Weight 90.72 kg; Height 5 ld1 ft. 6 in. (167.64 cm); Pain 10/10; 15:20 BP 129 / 68; Pulse 50; Resp 16; Pulse Ox 98% on R/A; jb4 16:45 BP 115 / 79; Pulse 54; Resp 16; Pulse Ox 96% on R/A; jb4 14:25 Body Mass Index 32.28 (90.72 kg, 167.64 cm) ld1 Yvonne Coma Score: 16:57 Eye Response: spontaneous(4). Verbal Response: oriented(5). Motor Response: obeys rn commands(6). Total: 15. ED Course: 13:40 Patient arrived in ED. mr 13:40 Alexey Taylor is Private Physician. mr 14:21 Arm band placed on right wrist. ld1 14:23 Triage completed. ld1 14:27 Graham Stack MD is Attending Physician. rn 14:54 Initial lab(s) drawn, by me, sent to lab. Urine collected: COVID swab sent to lab. tm3 Inserted saline lock: 22 gauge in right antecubital area, using aseptic technique. 15:09 Gordon Calle, RN is Primary Nurse. jb4 15:25 Patient has correct armband on for positive identification. Bed in low position. Call jb4 light in reach. Side rails up X 1. Client placed on continuous cardiac and pulse oximetry monitoring. NIBP monitoring applied. 16:45 No provider procedures requiring assistance completed. IV discontinued, intact, jb4 bleeding controlled, No redness/swelling at site. Pressure dressing applied. Administered Medications: 15:22 Drug: Zofran (Ondansetron) 4 mg Route: IVP; Site: right antecubital; jb4 15:22 Drug: NS 0.9% 1000 ml Route: IV; Rate: 1000 ml; Site: right antecubital; jb4 15:24 Drug: Tylenol 650 mg Route: PO; jb4 Medication: 15:25 VIS not applicable for this client. jb4 Outcome: 17:01 Discharge ordered by . rn 17:17 Discharged to home ambulatory, with family. jb4 17:17 Condition: stable 17:17 Discharge instructions given to patient, Instructed on discharge instructions, follow up and referral plans. medication usage, Demonstrated understanding of instructions, follow-up care, medications, Prescriptions given X 1. 17:19 Patient left the ED. jb4 Signatures: Sukhjinder Pond tm3 Hillary Johnson mr Graham Stack MD MD rn Bryson, James, RN RN jb4 Karie Mcgee RN RN ld1 Corrections: (The following items were deleted from the chart) 14:28 14:25 BP 123 / 79; Pulse 58bpm; Resp 18bpm; Pulse Ox 99%; 90.72 kg; Height 5 ft. 6 in.; ld1 BMI: 32.2; Pain 10/10; ld1 17:16 17:15 BP 115 / 79; Pulse 54bpm; Resp 16bpm; Pulse Ox 96% RA; jb4 jb4
--- NOTE | 2022-01-16 17:02 | EDPHYS ---
Physician Documentation [facility] Name: Dede Mcmanus Age: 61 yrs Sex: Female : 1960 Arrival Date: 01/16/2022 Time: 13:40 Bed 26 Private MD: Taylor Blackburn ED Physician Graham Stack HPI: 01/16 15:57 This 61 yrs old Female presents to ER via Ambulatory with complaints of Headache, rn Nausea. 15:57 The patient complains of pain to the top of head and forehead. The patient describes rn the headache as aching. Onset: The symptoms/episode began/occurred 1 day(s) ago. Severity of symptoms: At its worst the pain was moderate, in the emergency department the pain is unchanged. Headache History: The patient has had previous headaches and this one is similar to previous episodes. The symptoms are alleviated by nothing. the symptoms are aggravated by nothing. The patient has experienced similar episodes in the past. The patient has not recently seen a physician. . Historical: - Allergies: 14:21 No Known Allergies; ld1 - PMHx: 14:21 Depression; Diabetes - IDDM; ADD/ADHD; Migraines; Diverticulitis; ld1 - Immunization history:: Adult Immunizations up to date, Adult Immunizations up to date, Client reports receiving the 2nd dose of the Covid vaccine. - Social history:: Smoking status: Patient denies any tobacco usage or history of. Patient uses alcohol, but reports only rare drinking. - Family history:: not pertinent. - Hospitalizations: : No recent hospitalization is reported. ROS: 16:57 Constitutional: + fever ENT: Negative for injury, pain, and discharge, Neck: Negative rn for injury, pain, and swelling, Cardiovascular: Negative for chest pain, palpitations, and edema, Respiratory: Negative for shortness of breath, cough, wheezing, and pleuritic chest pain, Abdomen/GI: Negative for abdominal pain, vomiting, diarrhea, and constipation, MS/Extremity: Negative for injury and deformity, Skin: Negative for injury, rash, and discoloration, Neuro: Negative for numbness, tingling, and seizure. Exam: 16:57 Constitutional: This is a well developed, well nourished patient who is awake, alert, rn and in no acute distress. Head/Face: Normocephalic, atraumatic. Eyes: Pupils equal round and reactive to light, extra-ocular motions intact. Periorbital areas with no swelling, redness, or edema. ENT: MMM Neck: Trachea midline, no thyromegaly or masses palpated, and no cervical lymphadenopathy. Supple, full range of motion without nuchal rigidity, or vertebral point tenderness. No Meningismus. Cardiovascular: Bradycardic, regular. No pulse deficits. Respiratory: No increased work of breathing, no retractions or nasal flaring. Abdomen/GI: Soft, non-tender Skin: Warm, dry MS/ Extremity: Pulses equal, no cyanosis. Neuro: Awake and alert, GCS 15 Vital Signs: 14:21 Pulse 60; Resp 18; Pulse Ox 99% on R/A; ld1 14:25 BP 123 / 79; Pulse 58; Resp 18; Temp 99.4(O); Pulse Ox 99% ; Weight 90.72 kg; Height 5 ld1 ft. 6 in. (167.64 cm); Pain 10/10; 15:20 BP 129 / 68; Pulse 50; Resp 16; Pulse Ox 98% on R/A; jb4 16:45 BP 115 / 79; Pulse 54; Resp 16; Pulse Ox 96% on R/A; jb4 14:25 Body Mass Index 32.28 (90.72 kg, 167.64 cm) ld1 Yvonne Coma Score: 16:57 Eye Response: spontaneous(4). Verbal Response: oriented(5). Motor Response: obeys rn commands(6). Total: 15. MDM: 14:27 Patient medically screened. rn 16:57 Differential diagnosis: migraine, tension headache, vasomotor headache, COVID, viral rn syndrome, migraine. Data reviewed: vital signs, nurses notes, lab test result(s), and as a result, I will discharge patient. Counseling: I had a detailed discussion with the patient and/or guardian regarding: the historical points, exam findings, and any diagnostic results supporting the discharge/admit diagnosis, lab results, the need for outpatient follow up, to return to the emergency department if symptoms worsen or persist or if there are any questions or concerns that arise at home. Response to treatment: the patient's symptoms have mildly improved after treatment, and as a result, I will discharge patient. Special discussion: I discussed with the patient/guardian in detail that at this point there is no indication for admission to the hospital. It is understood, however, that if the symptoms persist or worsen the patient needs to return immediately for re-evaluation. ED course: Pt reports a little better, COVID neg, + UTI with urinary symptoms, will treat with abx. Pt reports had similar episode of headache and nausea last week, got better on its own after 2 days. Also reports chronic migraines.. 17:01 ED course: Pt declines nausea medication. rn 01/16 14:20 Order name: CBC with Diff; Complete Time: 15:56 1 01/16 14:20 Order name: CMP; Complete Time: 15:56 1 01/16 14:20 Order name: Lipase; Complete Time: 15:56 [facility] 01/16 14:27 Order name: Urine Microscopic Only; Complete Time: 15:56 rn 01/16 14:28 Order name: SARS-COV-2 RT PCR (Document "Date of Onset" if Symptomatic); Complete Time: rn 16:13 01/16 14:55 Order name: Urine Dipstick-Ancillary; Complete Time: 15:11 EDMS 01/16 14:20 Order name: IV Saline Lock; Complete Time: 15:11 1 01/16 14:20 Order name: Labs collected and sent; Complete Time: 15:11 [facility] 01/16 14:20 Order name: Urine Dipstick-Ancillary (obtain specimen); Complete Time: 15:10 [facility] 01/16 15:50 Order name: Urine Culture EDMS Administered Medications: 15:22 Drug: Zofran (Ondansetron) 4 mg Route: IVP; Site: right antecubital; jb4 15:22 Drug: NS 0.9% 1000 ml Route: IV; Rate: 1000 ml; Site: right antecubital; jb4 15:24 Drug: Tylenol 650 mg Route: PO; jb4 Disposition Summary: 01/16/22 17:01 Discharge Ordered Location: Home rn Problem: new rn Symptoms: have improved rn Condition: Stable rn Diagnosis - Headache rn - Nausea rn Followup: rn - With: Private Physician - When: As needed - Reason: Recheck today's complaints, Re-evaluation by your physician Discharge Instructions: - Discharge Summary Sheet rn - General Headache Without Cause rn - Nausea, Adult rn Forms: - Medication Reconciliation Form rn - Thank You Letter rn - Antibiotic furniture delivery driver - Prescription Opioid Use rn Prescriptions: - Cipro 500 mg Oral Tablet - take 1 tablet by ORAL route every 12 hours for 7 days; 14 tablet; Refills: 0, rn Product Selection Permitted Signatures: Dispatcher [employer] EDMS Graham Stack MD MD rn Bryson, James RN RN jb4 Karie Mcgee, RN RN ld1 Corrections: (The following items were deleted from the chart) 16:58 16:57 Constitutional: + fever Cardiovascular: Negative for chest pain, palpitations, rn and edema, Respiratory: Negative for shortness of breath, cough, wheezing, and pleuritic chest pain, Abdomen/GI: Negative for abdominal pain, vomiting, diarrhea, and constipation, MS/Extremity: Negative for injury and deformity, Skin: Negative for injury, rash, and discoloration, Neuro: Negative for numbness, tingling, and seizure, rn 16:59 16:57 Constitutional: This is a well developed, well nourished patient who is awake, rn alert, and in no acute distress. rn
[2022-01-16 18:07] VITALS: TEMP 99.4
[2022-01-16 18:10] VITALS: BP 115/79; O2SAT 96
== END 2022-01-16 17:19 | disposition home or self-care (01) ==
LOC: ER 13:38
DX: R51.9 Headache, unspecified (principal); R11.0 Nausea; Z20.822 Contact with and (suspected) exposure to COVID-19
CPT/HCPCS: 87088; 85025; 87086; 36415; 83690; 80053; 96374; 99284; U0003; J7030; J2405; 81003; 81015

== ENCOUNTER 2024-04-22 23:52 | Emergency (ER) | payer OTHER ==
[2024-04-23] MEDS ORDERED: MAGNES/ALUMIN/SIMET 30ML UCUP ONE (01:08)
[2024-04-23] MEDS ORDERED: LIDOCAINE VISCOUS 2% 10ML ORAL SOLN ONE (01:08)
[2024-04-23] MEDS ORDERED: FAMOTIDINE 20 MG/2 ML VIAL IV ONE (01:09)
[2024-04-23 01:10] LABS: Absolute Eosinophils 0.2 K/uL (0-0.5); Absolute Lymphocytes (CBC) 1.5 K/uL (0.7-4.9); Absolute Monocytes 0.4 K/uL (0.1-1.3); Absolute Neutrophil 2.9 K/uL (1.8-8.0); Basophils % 0.6 % (0-1.3); Eosinophils % 3.9 % (0-4.4); Hematocrit 43.6 % (36.0-45.0); Hemoglobin 14.5 g/dL (12.0-15.0); Lymphocytes % 29.3 % (15.3-44.8); MCH 29.5 pg (27.0-35.0); MCHC 33.3 g/dL (32.0-36.0); MCV 88.6 fL (80-100); MPV 10.6 fL (7.6-11.3); Monocytes % 8.5 % (3.3-12.3); Neutrophils % 57.7 % (41.7-73.7); Nucleated Red Blood Cells % 0.1 % (0-0); Platelets 106 thou/uL (152-406); RBC Red Blood Cell Count 4.92 M/uL (3.86-4.86); Red Cell Distribution Width 13.8 % (12.1-15.2)
[2024-04-23 01:36] LABS: ALT/SGPT 56 U/L (13-56); Albumin 3.4 g/dL (3.4-5.0); Albumin/Globulin Ratio 0.9 (1.1-1.8); Alkaline Phosphatase 130 U/L (45-117); Anion Gap 12.1 mEq/L (5.0-15.0); BUN Blood Urea Nitrogen 20 mg/dL (7-18); Bicarbonate 23 mEq/L (21-32); Bilirubin Total 0.2 mg/dL (0.2-1.0); Globulin 3.6 g/dL (2.3-3.5); Glomerular Filtration Rate 48 ml/min (=/>90); Glucose Level 271 mg/dL (74-106); NT PRO-BNP 72 pg/mL (<125); Sodium Level 134 mEq/L (136-145); Troponin High Sensitivity 7.4 pg/mL (<58.9)
[2024-04-23 01:37] LABS: AST/SGOT 54 U/L (15-37); Bilirubin Direct < 0.2 mg/dL (0-0.2); Potassium 4.1 mEq/L (3.5-5.1)
--- NOTE | 2024-04-23 03:05 | ER ---
Nurse's Notes [facility] Name: Dede Mcmanus Age: 63 yrs Sex: Female : 1960 Arrival Date: 04/22/2024 Time: 23:52 Bed 16 Private MD: Diagnosis: Chest pain, unspecified Presentation: 04/23 00:00 Chief complaint: Patient states: CHESRT PAIN SINCE 1700 TODAY. Coronavirus screen: At kj2 this time, the client does not indicate any symptoms associated with coronavirus-19. Ebola Screen: No symptoms or risks identified at this time. Initial Sepsis Screen: Does the patient meet any 2 criteria? No. Patient's initial sepsis screen is negative. Does the patient have a suspected source of infection? No. Patient's initial sepsis screen is negative. Risk Assessment: Do you want to hurt yourself or someone else? Patient reports no desire to harm self or others. Onset of symptoms. 00:00 Method Of Arrival: Ambulatory kj2 00:00 Acuity: SHARIFA 2 kj2 Triage Assessment: 00:05 General: Appears in no apparent distress. Behavior is calm, cooperative. Pain: kj2 Complains of pain in CHEST Pain currently is 5 out of 10 on a pain scale. Cardiovascular: Patient's skin is warm and dry. Respiratory: Airway is patent Respiratory effort is unlabored. GI: No signs and/or symptoms were reported involving the gastrointestinal system. : No signs and/or symptoms were reported regarding the genitourinary system. Historical: - Allergies: 00:36 No Known Allergies; kj2 - PMHx: 03:13 ADD/ADHD; Depression; Diabetes - IDDM; Diverticulitis; Migraines; kj2 - PSHx: 03:13 Appendectomy; Cholecystectomy; right knee surgery; kj2 - Immunization history:: Adult Immunizations up to date. - Social history:: Smoking status: Patient denies any tobacco usage or history of. - Family history:: not pertinent. - Hospitalizations: : No recent hospitalization is reported. Screenin:05 [facility] ED Fall Risk Assessment (Adult) History of falling in the last 3 months, kj2 including since admission No falls in past 3 months (0 pts) Confusion or Disorientation No (0 pts) Intoxicated or Sedated No (0 pts) Impaired Gait No (0 pts) Mobility Assist Device Used No (0 pt) Altered Elimination No (0 pt) Score/Fall Risk Level 0 - 2 = Low Risk Maintained a safe environment, Hourly rounding (assess needs \T\ fall precautionary measures) done. Abuse screen: Denies threats or abuse. Denies injuries from another. Nutritional screening: No deficits noted. Tuberculosis screening: No symptoms or risk factors identified. Assessment: 00:05 General: SEE TRIAGE ASSESSMENT. kj2 00:39 Reassessment: Patient appears in no apparent distress at this time. Patient and/or kj2 family updated on plan of care and expected duration. Pain level reassessed. Patient is alert, oriented x 3, equal unlabored respirations, skin warm/dry/pink. 00:50 Pain: Pain began gradually. kj2 01:13 Reassessment: Patient appears in no apparent distress at this time. Patient and/or kj2 family updated on plan of care and expected duration. Pain level reassessed. Patient is alert, oriented x 3, equal unlabored respirations, skin warm/dry/pink. 02:47 Reassessment: Patient appears in no apparent distress at this time. Patient is alert, kj2 oriented x 3, equal unlabored respirations, skin warm/dry/pink. 03:12 Pain: Pain does not radiate. kj2 Vital Signs: 00:00 BP 137 / 69; Pulse 66; Resp 18; Temp 98.7; Pulse Ox 100% on R/A; Weight 83.91 kg; kj2 Height 5 ft. 6 in. ; Pain 5/10; 00:39 BP 117 / 61; Pulse 62; Resp 18; Pulse Ox 98% on R/A; kj2 01:40 BP 124 / 68; Pulse 64; Resp 18; Temp 98; Pulse Ox 100% on R/A; kj2 02:52 BP 107 / 62; Pulse 70; Resp 18; Pulse Ox 97% on R/A; kj2 03:23 BP 102 / 59; Pulse 74; Resp 18; Temp 97.9; Pulse Ox 100% on R/A; kj2 00:00 Body Mass Index 29.86 (83.91 kg, 167.64 cm) kj2 00:00 Pain Scale: Adult kj2 ED Course: 04/22 23:56 Patient arrived in ED. gm2 23:56 Graham Stack MD is Attending Physician. rn 04/23 00:05 Patient has correct armband on for positive identification. Placed in gown. Bed in low kj2 position. Call light in reach. Adult w/ patient. Client placed on continuous cardiac and pulse oximetry monitoring. NIBP monitoring applied. 00:05 Arm band placed on Patient placed in an exam room, on a stretcher. kj2 00:09 Rosalie Braden, RN is Primary Nurse. kj2 00:32 No provider procedures requiring assistance completed. Inserted saline lock: 20 gauge kj2 in right antecubital area, using aseptic technique. Blood collected. Flushed with 10 mL NS. Patient maintains SpO2 saturation greater than 95% on room air. 00:35 Triage completed. kj2 00:38 XRAY Chest (1 view) In Process Unspecified. EDMS 00:40 Provided Education on: CALL LIGHT. kj2 02:17 CT Chest, Abdomen, Pelvis - W/Contrast In Process Unspecified. EDMS 03:04 Gualberto Morgan MD is Referral Physician. rn 03:15 IV discontinued, intact, bleeding controlled, No redness/swelling at site. Pressure kj2 dressing applied. Administered Medications: 01:13 Drug: Famotidine IVP 20 mg IVP once; dilute with 10 mL 0.9% NaCl; give over 2 minutes kj2 Route: IVP; Site: right antecubital; 03:35 Follow up: Response: No adverse reaction kj2 01:13 Drug: GI Cocktail without - (Maalox PO 30 ml, Lidocaine Mucous Membrane 2 % 15 kj2 ml) PO once Route: PO; 03:35 Follow up: Response: No adverse reaction kj2 Medication: 00:40 VIS not applicable for this client. kj2 Outcome: 03:05 Discharge ordered by . rn 03:14 Discharged to home ambulatory, with family, kj2 03:14 Condition: stable 03:14 Discharge instructions given to patient, family, Instructed on discharge instructions, follow up and referral plans. Demonstrated understanding of instructions, follow-up care, 03:33 Patient left the ED. kj2 Signatures: Dispatcher [employer] EDID Graham Stack MD MD rn Mitchell, Ginger gm2 Rosalie Braden RN RN kj2
--- NOTE | 2024-04-23 03:05 | EDPHYS ---
Physician Documentation [facility] Name: Dede Mcmanus Age: 63 yrs Sex: Female : 1960 Arrival Date: 04/22/2024 Time: 23:52 Bed 16 Private MD: ED Physician Graham Stack HPI: 04/23 01:30 This 63 yrs old Female presents to ER via Ambulatory with complaints of Chest Pain. rn 01:30 The patient or guardian reports chest pain that is located primarily in the substernal rn area. Onset: at 17:00. The pain does not radiate. Associated signs and symptoms: Pertinent positives: abdominal pain, nausea, Pertinent negatives: diaphoresis, syncope, vomiting. The chest pain is described as sharp. Duration: The patient or guardian reports multiple episodes, that are intermittent. Modifying factors: The symptoms are alleviated by nothing. the symptoms are aggravated by nothing. Severity of pain: At its worst the pain was mild in the emergency department the pain has resolved. The patient has not experienced similar symptoms in the past. Patient reports upper abdominal pain and chest pain that began at 5 PM yesterday. Intermittent, lasts a couple of minutes and then goes away. Denies any fever or illness. No cough or shortness of breath. No known heart problems. Patient reports has had gastric ulcers and acid problems in the past. Had pizza last night but states was having a little bit of pain prior to eating pizza. No blood in stool or dark stool. No trauma.. Historical: - Allergies: 00:36 No Known Allergies; kj2 - PMHx: 03:13 ADD/ADHD; Depression; Diabetes - IDDM; Diverticulitis; Migraines; kj2 - PSHx: 03:13 Appendectomy; Cholecystectomy; right knee surgery; kj2 - Immunization history:: Adult Immunizations up to date. - Social history:: Smoking status: Patient denies any tobacco usage or history of. - Family history:: not pertinent. - Hospitalizations: : No recent hospitalization is reported. ROS: 01:30 Constitutional: Negative for fever, chills, and weight loss, Neck: Negative for injury, rn pain, and swelling, Cardiovascular: Positive for chest pain Respiratory: Negative for shortness of breath, cough, wheezing, and pleuritic chest pain, Abdomen/GI: Positive for abdominal pain with nausea Back: Negative for injury and pain, : Negative for injury, bleeding, discharge, and swelling, MS/Extremity: Negative for injury and deformity, Skin: Negative for injury, rash, and discoloration, Neuro: Negative for headache, weakness, numbness, tingling, and seizure, Exam: 01:30 Constitutional: This is a well developed, well nourished patient who is awake, alert, rn and in no acute distress. Cardiovascular: Regular rate and rhythm. No pulse deficits. Respiratory: No increased work of breathing, no retractions or nasal flaring. Abdomen/GI: Soft, nontender MS/ Extremity: Pulses equal, no cyanosis. Neurovascular intact. Full, normal range of motion. Equal circumference. Neuro: Awake and alert, GCS 15 01:38 ECG was reviewed by the Attending Physician. rn Vital Signs: 00:00 BP 137 / 69; Pulse 66; Resp 18; Temp 98.7; Pulse Ox 100% on R/A; Weight 83.91 kg; kj2 Height 5 ft. 6 in. ; Pain 5/10; 00:39 BP 117 / 61; Pulse 62; Resp 18; Pulse Ox 98% on R/A; kj2 01:40 BP 124 / 68; Pulse 64; Resp 18; Temp 98; Pulse Ox 100% on R/A; kj2 02:52 BP 107 / 62; Pulse 70; Resp 18; Pulse Ox 97% on R/A; kj2 03:23 BP 102 / 59; Pulse 74; Resp 18; Temp 97.9; Pulse Ox 100% on R/A; kj2 00:00 Body Mass Index 29.86 (83.91 kg, 167.64 cm) kj2 00:00 Pain Scale: Adult kj2 MDM: 04/22 23:56 Medical Screening Exam initiated rn 04/23 03:01 Differential diagnosis: acute myocardial infarction, acute pericarditis, anxiety, rn coronary artery disease costochondritis, esophagitis, gastritis, gastroesophageal reflux disease (GERD), peptic ulcer disease, pleurisy, pneumonia, pneumothorax, stable angina. HEART Score: History: Slightly Suspicious (0), ECG: Non specific repolarization disturbance / LBTB / PM (1), Age: > or = 65 years (2), Risk Factors: 1 or 2 risk factors (1), Troponin: < or = 1 x Normal Limit (0), Total Score = 4. Data reviewed: vital signs, nurses notes, lab test result(s), EKG, radiologic studies, CT scan, and as a result, I will admit patient. Consideration of Admission/Observation Escalation of care including admission/observation considered. Independent interpretation of the following test(s) in the Emergency Department EKG: See my EKG interpretation above X-Ray: My interpretation is Chest x-ray images negative for pneumonia or pneumothorax per my interpretation. Counseling: I had a detailed discussion with the patient and/or guardian regarding the historical points, exam findings, and any diagnostic results supporting the discharge/admit diagnosis, lab results, radiology results, the need for further work-up and treatment in the hospital. Response to treatment: the patient's symptoms have resolved after treatment, the patient's condition has returned to base line, the patient is now symptom free. ED course: Patient without clear etiology of her abdominal pain and chest pain. Troponin negative. BNP negative. CT chest abdomen pelvis does not show anything acute. 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 Has not had further episodes of chest pain since arrival. Explained to her that CT chest showed coronary calcifications and needs to follow-up with cardiology. Return precautions given and understood. Understands that if symptoms return or get worse needs to come to the ER since it is a weekend.. 04/22 23:56 Order name: Basic Metabolic Panel; Complete Time: 01: rn 04/22 23:56 Order name: CBC with Diff; Complete Time: : rn 04/22 23:56 Order name: LFT's; Complete Time: : rn 04/22 23:56 Order name: NT PRO-BNP; Complete Time: : rn 04/22 23:56 Order name: Troponin HS; Complete Time: : rn 04/23 00:15 Order name: Lipase; Complete Time: : dr5 04/22 23:56 Order name: XRAY Chest (1 view) rn 04/23 00:42 Order name: CT Chest, Abdomen, Pelvis - W/Contrast rn 04/22 23:56 Order name: EKG; Complete Time: 23:57 rn 04/22 23:56 Order name: Cardiac monitoring; Complete Time: 00:32 rn 04/22 23:56 Order name: EKG - Nurse/Tech; Complete Time: 00:32 rn 04/22 23:56 Order name: IV Saline Lock; Complete Time: 00:32 rn 04/22 23:57 Order name: Labs collected and sent; Complete Time: 00:32 rn 04/22 23:57 Order name: O2 Per Protocol; Complete Time: 00:32 rn 04/22 23:57 Order name: O2 Sat Monitoring; Complete Time: 00:32 rn EC:38 Rate is 65 beats/min. Rhythm is regular. QRS [place] is Normal. RI interval is normal. QRS rn interval is normal. QT interval is normal. No Q waves. T waves are Normal. No ST changes noted. Clinical impression: NSR w/ Non-specific ST/T Changes. Interpreted by me. Reviewed by me. Administered Medications: 01:13 Drug: Famotidine IVP 20 mg IVP once; dilute with 10 mL 0.9% NaCl; give over 2 minutes kj2 Route: IVP; Site: right antecubital; 03:35 Follow up: Response: No adverse reaction kj2 01:13 Drug: GI Cocktail without - (Maalox PO 30 ml, Lidocaine Mucous Membrane 2 % 15 kj2 ml) PO once Route: PO; 03:35 Follow up: Response: No adverse reaction kj2 Disposition Summary: 04/23/24 03:05 Discharge Ordered Notes: Location: Home rn Problem: new rn Symptoms: have improved rn Condition: Stable rn Diagnosis - Chest pain, unspecified rn Followup: rn - With: Gualberto Morgan MD - When: As needed - Reason: Recheck today's complaints, Re-evaluation by your physician Discharge Instructions: - Discharge Summary Sheet rn - Nonspecific Chest Pain, Adult rn Forms: - Medication Reconciliation Form rn - Antibiotic shift supervisor rn - Prescription Opioid Use rn - Patient Portal Instructions rn - Leadership Thank You Letter rn Signatures: Dispatcher [employer] EDMS Graham Stack MD MD rn Jordan, Krystal, RN RN kj2 Corrections: (The following items were deleted from the chart) 00:43 00:43 Chest Abdomen Pelvis W Con+CT.RAD.BRZ ordered. EDMS EDMS
--- NOTE | 2024-04-23 03:11 | RAD REPORT ---
EXAM DESCRIPTION: CT CHEST ABDOMEN PELVIS WITH IV CONTRAST 04/23/2024 2:32 AM CDT CLINICAL HISTORY: 63 years, Female, Chest and abdominal pain. COMPARISON: XR Chest 04/23/[address] Abdomen pelvis 03/31/2021. PROCEDURE: Contrast-enhanced images of the chest, abdomen and pelvis were performed from the lung apices to the ischial tuberosities after the administration of IV contrast. In addition multiplanar reformats in the coronal and sagittal plane were obtained and reviewed. An individualized dose optimization technique, Automated Exposure Control, was utilized for the perfo rmed procedure. FINDINGS: CHEST: Lower neck: Visualized thyroid gland and soft tissues are normal. No adenopathy. Lungs: The lung parenchyma demonstrate compressibility changes right lung base with mild elevation of the right hemidiaphragm. No evidence of airspace or interstitial process. No significant pulmonary nodules and/or masses identified. No focal areas of consolidation. Airways: The trachea mainstem bronchus demonstrate to be unremarkable. Pleural: There are no pleural effusion. No evidence for pneumothorax. Hemidiaphragms are normally pos itioned. Mediastinum and lymph nodes: No significant mediastinal and/or hilar lymphadenopathy. The axillary re gions demonstrate to be clear. Heart: Normal size. No pericardial thickening or effusion. Coronary: Mild coronary calcification. Aorta: The thoracic aorta demonstrate to be within normal limits. No evidence for aneurysm. Pulmonary arteries: The central pulmonary arteries demonstrate to be within normal limits. No evidenc e for significant central filling defect to suggest pulmonary embolus. Osseous structures and chest wall: There is anterior spondylosis within the mid/lower thoracic spine. ABDOMEN AND PELVIS: Liver: The liver demonstrated presence of decreased attenuation corresponding to mild fatty infiltration. Gallbladder: Surgical clips within the gallbladder fossa corresponding to previous cholecystectomy. N o significant biliary duct dilatation. Adrenal glands: The adrenal glands demonstrate to be normal. Pancreas: The pancreas demonstrate to be normal. Spleen: The spleen demonstrate to be within normal limits. Kidneys: The kidneys demonstrate normal uptake of contrast media. There is no evidence for nephroli thiasis and/or hydronephrosis. Small bilateral parapelvic renal cysts lower pole study greater left than right on axial image 121/233 GI: Grossly the unopacified stomach, small bowel and large bowel demonstrate to be within normal limi ts. No evidence for bowel dilatation and/or free air. The appendix was not visualized. The left-sided colon demonstrate to be decompressed with no gross abnormalities. : The urinary bladder demonstrate to be unremarkable. Genitalia: The uterus demonstrate to be within normal limits. There are normal adnexal structures. Abdominal aorta: The aorta demonstrate to be within normal limits. Retroperitoneum: There is no retroperitoneal lymphadenopathy. There is no evidence for ascites and/or abnormal fluid collections. Bones: The bones demonstrate to be demineralized. The lumbar spine demonstrate grade 1 spondylolisthe sis with spondylolysis at L4/L5. Soft tissues: The soft tissues demonstrated presence of a right gluteal injection granuloma. IMPRESSION: Mild coronary artery calcification. Mild fatty infiltration of the liver. Status post cholecystectomy. Subcentimeter Bosniak I benign renal cyst. No follow-up imaging is recommended. JACR 2017; [id number], Management of the Incidental Renal Mass on CT, [employer] 2020; [id number], B osniak Classification of Cystic Renal Masses, Version 2019. Grade 1 spondylolisthesis with spondylolysis at L4/L5. Electronically signed by: Tk Yi MD 04/23/2024 02:45 AM CDT Due to temporary technical issues with the PACS/[employer] reporting system, reports are being lucas d by the in-house radiologist without review as a courtesy to ensure prompt reporting the interpreting radiologist is fully responsible for the content of the report. Transcribed Date/Time: 04/23/2024 3:11 AM
--- NOTE | 2024-04-23 06:00 | RAD REPORT ---
TIME OF STUDY: 04/22/2024 11:57 PM CDT REASON FOR EXAM: CHEST PAIN COMPARISON: None. FINDINGS: AP view of the chest was obtained, chest 1 view. Lungs: Normal lung volume. No mass, or consolidation. Normal pulmonary vascularity.. Pleura: No pneumothorax. There is no pleural effusion. Heart and Mediastinum: Normal cardiomediastinal silhouette and great vessels.. Bones: No acute bony abnormality.. IMPRESSION: 1. No acute cardiopulmonary process. Electronically signed by: Esvin Ernst MD 04/23/2024 12:45 AM CDT RP Due to temporary technical issues with the PACS/[employer] reporting system, reports are being lucas d by the in-house radiologist without review as a courtesy to ensure prompt reporting the interpreting radiologist is fully responsible for the content of the report. Transcribed Date/Time: 04/23/2024 6:00 AM
[2024-04-23 13:50] VITALS: BP 102/59; TEMP 97.9; O2SAT 100
--- NOTE | 2024-04-23 15:02 | EKG ---
Test Date: 2024-04-23 Test Time: 00:19:20 Department Coordinator: RORY MEASUREMENT RESULTS: Intervals: Rate: 65 OK: 148 QRSD: 106 QT: 442 QTc: 459 Alviso: P: 47 OK: 148 QRS: 8 T: 42 INTERPRETIVE STATEMENTS: Normal sinus rhythm Nonspecific ST and T wave abnormality Abnormal ECG Compared to ECG 09/07/2022 14:31:38 Incomplete right bundle-branch block no longer present ST (T wave) deviation still present Electronically Signed On 04-23-24 15:02:07 CDT by Betito Cole
== END 2024-04-23 03:33 | disposition home or self-care (01) ==
LOC: ER 23:52
DX: R07.9 Chest pain, unspecified (principal); E11.9 Type 2 diabetes mellitus without complications
CPT/HCPCS: 93005; 85025; 80048; 36415; 80076; 84484; 83690; 83880; 71260; 74177; 71045; 96374; 99284; Q9967